=== PATIENT | female | born 1940 | race Caucasian/White ===

== ENCOUNTER 2016-12-29 09:05 | Day surgery (SDC) | payer MEDICARE, BC ==
[~2016-12-29 09:05] MED LIST: Sodium Chloride 0.9% 1,000 ML IV SCH
[2016-12-29] MEDS ORDERED: Propofol 200 MG/20 ML SDV IV ONE (09:06)
[2016-12-29] MEDS ORDERED: Propofol 200 MG/20 ML SDV ONE ×2 (09:19→10:40)
[2016-12-29] MEDS ORDERED: Lactated Ringers 1,000 ML IV SCH (10:00)
[2016-12-29] MEDS ORDERED: Sodium Chloride 0.9% 5 ML Syringe FLUSH PRN (10:00)
--- NOTE | 2016-12-29 12:03 | PCM.OPNOTE ---
- General Post-Op/Procedure Note Date of Surgery/Procedure: 12/29/16 Operative Procedure(s): Colonoscopy Findings: Multiple large diverticula noted in the sigmoid colon and the descending colon. No evidence of polyps, AV malformation, angiodysplasia, obstruction or or malignancy. Pre Op Diagnosis: Alteration of bowel habits. Anesthesia Technique: MAC Primary Surgeon: Aydin Jimenez Complications: None Condition: Good Free Text/Narrative:: INFORMED CONSENT: Patient is here today for elective colonoscopy. All aspects of this procedure have been discussed with the patient. All possible complications also, including possibility of perforation, infection, pain, bleeding and unknown complications. In the event of perforation patient may need to have abdominal exploration, colon resection, colostomy and even was discussed. Anesthetic complications were handled by anesthesia department. The patient understands fully well. Patient did not have any further questions for me at the end of my interview. The patient wishes for me to proceed. PREOPERATIVE DIAGNOSIS/INDICATIONS: [alteration of bowel habits, chronic diarrhea.] POSTOPERATIVE DIAGNOSIS: [Multiple diverticula especially of the sigmoid and descending colon. Some of the diverticula were large] INSTRUMENT USED: Olympus videocolonoscope. ASA CLASSIFICATION: [2] ANESTHESIA: Continuous EKG, oximetry and intermittent blood pressure and respiratory monitoring were performed throughout the procedure. IV Versed and Fentanyl were administered. PROCEDURE PERFORMED: Colonoscopy POSITIONS OF PATIENT: Left lateral. RECTUM: Normal. SIGMOID COLON: multiple lytic lyse some of them a large and noted.. DESCENDING COLON: Normal. SPLENIC FLEXURE: Normal. TRANSVERSE COLON: Normal. HEPATIC FLEXURE: Normal. ASCENDING COLON: Normal. CECUM: Normal. ILEOCECAL VALVE: Normal. BIOPSY: None. TOLERANCE: Excellent. COMPLICATIONS: None.
[2016-12-29 13:04] VITALS: BP 130/78
== END 2016-12-29 13:10 | disposition home or self-care (01) ==
LOC: KA.SDS 09:05
PROVIDERS: ATTEND Family Medicine
DX: K57.30 Diverticulosis of large intestine without perforation or abscess without bleeding (principal); E11.9 Type 2 diabetes mellitus without complications; I10 Essential (primary) hypertension; G47.30 Sleep apnea, unspecified; E78.5 Hyperlipidemia, unspecified; E03.4 Atrophy of thyroid (acquired); Z88.8 Allergy status to other drugs, medicaments and biological substances; Z79.899 Other long term (current) drug therapy
CPT/HCPCS: 00810; 45378; 82962; J7030; J2704

== ENCOUNTER 2020-07-27 19:56 | Inpatient (IN) | payer MEDICARE, BC ==
[2020-07-27] MEDS ORDERED: Sodium Chloride 0.9% 1,000 ML IV ONE ×2 (20:08→22:40)
[2020-07-27] MEDS ORDERED: Ondansetron 4 MG/2 ML SDV IVPUSH ONE (20:09)
[2020-07-27] MEDS ORDERED: Acetaminophen 500 MG Tab PO ONE (20:40)
[2020-07-27] MEDS ORDERED: Acetaminophen 500 MG Tab ONE (20:41)
[2020-07-27 21:34] LABS: ANION GAP 20.7 mmol/L (5-15); CHLORIDE,CL 95 mmol/L (98-107); SODIUM,NA 131 mmol/L (136-145)
[2020-07-27] MEDS ORDERED: cefTRIAXone 2 GM Vial IVPUSH ONE (22:21)
[2020-07-27] MEDS ORDERED: Sodium Chloride 0.9% 1,000 ML ONE (22:28)
[2020-07-27] MEDS ORDERED: Heparin Sodium/D5W 250 ML IV SCH (22:45)
[2020-07-27] MEDS ORDERED: Acetaminophen 325 MG Tab PO PRN (23:05)
--- NOTE | 2020-07-27 23:38 | EDM.PDOC ---
ED HPI GENERAL MEDICAL PROBLEM - General Chief Complaint: Gastrointestinal Problem Stated Complaint: NAUSEA, DIARRHEA Time Seen by Provider: 07/27/20 20:00 Source of Information: Reports: Patient, Family () History Limitations: Reports: No Limitations - History of Present Illness INITIAL COMMENTS - FREE TEXT/NARRATIVE: 79-year-old female presents to the emergency room with complaints of nausea vomiting and diarrhea that began on 07/26/2020. She denies any significant fevers but has felt chilled. She denies any shortness of breath or chest pain. She has not had much for appetite and has not been drinking fluids. Her states that she got dehydrated the last time that she had the similar symptoms. She denies any upper respiratory complaints. No cough. No headaches. Denies significant abdominal pain. Denies dysuria. Onset Date: 07/26/20 Duration: Hour(s):, Getting Worse Location: Reports: Generalized Quality: Reports: Ache Severity: Moderate Improves with: Reports: Rest Worsens with: Reports: None Associated Symptoms: Reports: Fever/Chills, Nausea/Vomiting, Weakness. Denies: Confusion, Chest Pain, Headaches, Shortness of Breath - Related Data Allergies Allergy/AdvReac Type Severity Reaction Status Date / Time rosuvastatin [From Crestor] Allergy Itching Verified 07/27/20 21:39 Cnlejar-Rby-Atk Reductase Allergy Other Verified 07/27/20 21:39 Inhibitor Home Meds: Home Meds Amitriptyline [Elavil] 50 mg PO BEDTIME 08/22/13 [History] Latanoprost [Xalatan 0.005% Ophth Soln] 2.5 ml EYEBOTH BEDTIME 07/22/15 [History] Levothyroxine 25 mcg PO ACBREAKFAST 07/22/15 [History] hydroCHLOROthiazide [Hydrochlorothiazide] 12.5 mg PO DAILY 07/22/15 [History] Losartan [Cozaar] 50 mg PO DAILY 12/24/16 [History] diphenhydrAMINE [Benadryl] 25 mg PO BEDTIME PRN 12/24/16 [History] Past Medical History HEENT History: Reports: Cataract, Glaucoma, Hard of Hearing, Impaired Vision Cardiovascular History: Reports: High Cholesterol, Hypertension Respiratory History: Reports: Sleep Apnea Gastrointestinal History: Reports: Chronic Diarrhea, GERD [employer] History: Reports: Fibroids, Musculoskeletal History: Reports: Neck Pain, Chronic Neurological History: Reports: Migraines Psychiatric History: Reports: None Endocrine/Metabolic History: Reports: Hypothyroidism, Obesity/BMI 30+ - Infectious Disease History Infectious Disease History: Reports: Chicken Pox, Herpes, Influenza, Pertussis (Whooping Cough), Shingles - Past Surgical History HEENT Surgical History: Reports: Cataract Surgery Cardiovascular Surgical History: Reports: None Respiratory Surgical History: Reports: None GI Surgical History: Reports: Appendectomy, Colonoscopy, EGD Female Surgical History: Reports: Hysterectomy, Salpingo-Oophorectomy Endocrine Surgical History: Reports: None Neurological Surgical History: Reports: None Social & Family History - Family History Family Medical History: No Pertinent Family History ED ROS GENERAL - Review of Systems Review Of Systems: See Below Constitutional: Reports: Chills HEENT: Reports: No Symptoms Respiratory: Reports: No Symptoms Cardiovascular: Reports: No Symptoms Endocrine: Reports: No Symptoms GI/Abdominal: Reports: Anorexia, Diarrhea, Nausea, Vomiting : Denies: Dysuria, Flank Pain Musculoskeletal: Reports: No Symptoms Skin: Denies: Cyanosis, Diaphoresis, Pruritis, Rash Neurological: Reports: No Symptoms ED EXAM, GI/ABD - Physical Exam Exam: See Below Exam Limited By: No Limitations General Appearance: Alert, WD/WN, No Apparent Distress Eyes: Bilateral: Normal Appearance, EOMI Ears: Hearing Grossly Normal Nose: Normal Inspection, Normal Mucosa, No Blood Throat/Mouth: Normal Inspection, Normal Oropharynx, Normal Voice, No Airway Compromise Head: Atraumatic, Normocephalic Neck: Normal Inspection, Supple, Non-Tender, Full Range of Motion Respiratory/Chest: No Respiratory Distress, Lungs Clear, Normal Breath Sounds, No Accessory Muscle Use Cardiovascular: Regular Rate, Rhythm GI/Abdominal Exam: Normal Bowel Sounds, Soft, Non-Tender, No Organomegaly, No Distention Back Exam: Normal Inspection. No: CVA Tenderness (L), CVA Tenderness (R) Extremities: Normal Inspection, Normal Range of Motion, Non-Tender, No Pedal Edema, Normal Capillary Refill Neurological: Alert, Oriented, CN II-XII Intact, No Motor/Sensory Deficits Psychiatric: Normal Affect, Normal Mood Skin Exam: Warm, Dry, Intact, Normal Color, No Rash Lymphatic: No Adenopathy Course - Vital Signs Last Recorded V/S: Last Vital Signs Temp 101.4 F H 07/27/20 21:10 Pulse 108 H 07/27/20 19:56 Resp 18 07/27/20 19:56 BP 147/85 H 07/27/20 19:56 Pulse Ox 93 L 07/27/20 19:56 - Orders/Labs/Meds Orders: Active Orders 24 hr Category Date Time Status Chest 2V [CR] Stat Exams 07/27/20 21:43 Ordered CULTURE BLOOD [BC] Stat Lab 07/27/20 22:55 Received CULTURE BLOOD [BC] Stat Lab 07/27/20 23:23 Received CULTURE URINE [RM] Stat Lab 07/27/20 22:45 Received Sodium Chloride 0.9% [Normal Saline] 1,000 ml Med 07/27/20 22:40 Active IV ASDIRECTED Blood Culture x2 Reflex Set [OM.PC] Stat Oth 07/27/20 22:31 Ordered Medication Orders Acetaminophen (Acetaminophen 325 Mg Tab) 650 mg PO Q4H PRN PRN Reason: analgesia/fever Sodium Chloride (Normal Saline) 1,000 mls @ 150 mls/hr IV ASDIRECTED ONE Stop: 07/28/20 05:19 Last Admin: 07/27/20 22:40 Dose: 150 mls/hr Documented by: MALEKAT Vancomycin HCl 1.5 gm/ Sodium (Chloride) 250 mls @ 167 mls/hr IV ONETIME ONE Stop: 07/28/20 01:03 Levothyroxine Sodium (Levothyroxine 25 Mcg Tab) 25 mcg PO ACBREAKFAST DADIE Ondansetron HCl (Ondansetron 4 Mg/2 Ml Sdv) 4 mg IVPUSH Q6H PRN PRN Reason: Nausea/Vomiting Labs: Laboratory Tests 07/27/20 07/27/20 07/27/20 Range/Units 20:50 20:50 20:50 WBC 21.03 H (5.00-10.00) 10^3/uL RBC 4.27 (3.80-5.50) 10^6/uL Hgb 11.3 L (12.0-16.0) g/dL Hct 33.5 L (37.0-47.0) % MCV 78.5 L D (82.0-92.0) fL MCH 26.5 L (27.0-31.0) pg MCHC 33.7 (32.0-36.0) g/dL RDW 15.0 H (11.5-14.5) % Plt Count 191 (150-400) 10^3/uL MPV 9.2 (7.4-10.4) fL Immature Gran % (Auto) 1.9 (0.0-5.0) % Neut % (Auto) 87.2 H (50.0-70.0) % Lymph % (Auto) 3.6 L (20.0-40.0) % Bartholomew % (Auto) 7.3 (2.0-8.0) % Eos % (Auto) 0.0 L (1.0-3.0) % Baso % (Auto) 0.0 (0.0-1.0) % Neut # (Auto) 18.33 H (2.50-7.00) 10^3/uL Lymph # (Auto) 0.75 L (1.00-4.00) 10^3/uL Bartholomew # (Auto) 1.53 H (0.10-0.80) 10^3/uL Eos # (Auto) 0.00 L (0.10-0.30) 10^3/uL Baso # (Auto) 0.01 (0.00-0.10) 10^3/uL Immature Gran # (Auto) 0.41 (0.00-0.50) 10^3/uL Sodium 131 L (136-145) mmol/L Potassium 3.9 (3.5-5.1) mmol/L Chloride 95 L (98-107) mmol/L Carbon Dioxide 19.2 L (21.0-32.0) mmol/L Anion Gap 20.7 H (5-15) mmol/L BUN 16 (7-18) mg/dL Creatinine 0.85 (0.51-1.17) mg/dL Est Cr Clr Drug Dosing TNP Estimated GFR (MDRD) > 60 mL/min Glucose 169 H (70-140) mg/dL Lactic Acid (0.4-2.0) mmol/L Calcium 8.9 (8.7-10.3) mg/dL Total Bilirubin 0.7 0.7 (0.2-1.0) mg/dL Direct Bilirubin 0.3 H (0.0-0.2) mg/dL Indirect Bilirubin 0.4 mg/dL AST 39 H 40 H (15-37) U/L ALT 48 48 (14-63) U/L Alkaline Phosphatase 87 85 (46-116) U/L Total Protein 7.0 7.0 (6.4-8.2) g/dL Albumin 3.19 L 3.18 L (3.40-5.00) g/dL Globulin 3.82 Albumin/Globulin Ratio 0.83 Specimen Type Urine Color (YELLOW) Urine Appearance (CLEAR) Urine pH (5.0-9.0) Ur Specific [place] (1.005-1.030) Urine Protein (NEGATIVE) mg/dL Urine Glucose (UA) (NEGATIVE) mg/dL Urine Ketones (NEGATIVE) mg/dL Urine Occult Blood (NEGATIVE) Urine Nitrite (NEGATIVE) Urine Bilirubin (NEGATIVE) Urine Urobilinogen (0.2-1.0) E.U./dL Ur Leukocyte Esterase (NEGATIVE) Urine RBC (0-5) /HPF Urine WBC (0-5) /HPF Ur Epithelial Cells /LPF Urine Bacteria (NONE TO FEW) /HPF Urine Mucus (NEGATIVE) /LPF SARS CoV-2 RNA Rapid VERA (NEGATIVE) 07/27/20 07/27/20 07/27/20 Range/Units 21:50 22:50 22:55 WBC (5.00-10.00) 10^3/uL RBC (3.80-5.50) 10^6/uL Hgb (12.0-16.0) g/dL Hct (37.0-47.0) % MCV (82.0-92.0) fL MCH (27.0-31.0) pg MCHC (32.0-36.0) g/dL RDW (11.5-14.5) % Plt Count (150-400) 10^3/uL MPV (7.4-10.4) fL Immature Gran % (Auto) (0.0-5.0) % Neut % (Auto) (50.0-70.0) % Lymph % (Auto) (20.0-40.0) % Bartholomew % (Auto) (2.0-8.0) % Eos % (Auto) (1.0-3.0) % Baso % (Auto) (0.0-1.0) % Neut # (Auto) (2.50-7.00) 10^3/uL Lymph # (Auto) (1.00-4.00) 10^3/uL Bartholomew # (Auto) (0.10-0.80) 10^3/uL Eos # (Auto) (0.10-0.30) 10^3/uL Baso # (Auto) (0.00-0.10) 10^3/uL Immature Gran # (Auto) (0.00-0.50) 10^3/uL Sodium (136-145) mmol/L Potassium (3.5-5.1) mmol/L Chloride (98-107) mmol/L Carbon Dioxide (21.0-32.0) mmol/L Anion Gap (5-15) mmol/L BUN (7-18) mg/dL Creatinine (0.51-1.17) mg/dL Est Cr Clr Drug Dosing Estimated GFR (MDRD) mL/min Glucose (70-140) mg/dL Lactic Acid 4.9 H (0.4-2.0) mmol/L Calcium (8.7-10.3) mg/dL Total Bilirubin (0.2-1.0) mg/dL Direct Bilirubin (0.0-0.2) mg/dL Indirect Bilirubin mg/dL AST (15-37) U/L ALT (14-63) U/L Alkaline Phosphatase (46-116) U/L Total Protein (6.4-8.2) g/dL Albumin (3.40-5.00) g/dL Globulin Albumin/Globulin Ratio Specimen Type Urincath Urine Color Yellow (YELLOW) Urine Appearance Slightly cloudy H (CLEAR) Urine pH 6.0 (5.0-9.0) Ur Specific [place] 1.020 (1.005-1.030) Urine Protein 100 H (NEGATIVE) mg/dL Urine Glucose (UA) Negative (NEGATIVE) mg/dL Urine Ketones 15 H (NEGATIVE) mg/dL Urine Occult Blood Moderate H (NEGATIVE) Urine Nitrite Negative (NEGATIVE) Urine Bilirubin Negative (NEGATIVE) Urine Urobilinogen 0.2 (0.2-1.0) E.U./dL Ur Leukocyte Esterase Large H (NEGATIVE) Urine RBC 20-30 H (0-5) /HPF Urine WBC 75-100 H (0-5) /HPF Ur Epithelial Cells Few /LPF Urine Bacteria Moderate H (NONE TO FEW) /HPF Urine Mucus Few H (NEGATIVE) /LPF SARS CoV-2 RNA Rapid VERA Negative (NEGATIVE) Meds: Medications Generic Name Dose Route Start Last Admin Trade Name Suki PRN Reason Stop Dose Admin Acetaminophen 650 mg 07/27/20 23:05 Acetaminophen 325 Mg Tab PO Q4H PRN analgesia/fever Sodium Chloride 1,000 mls @ 150 mls/hr 07/27/20 22:40 07/27/20 22:40 Normal Saline IV 07/28/20 05:19 150 mls/hr ASDIRECTED ONE Administration Vancomycin HCl 1.5 gm/ Sodium 250 mls @ 167 mls/hr 07/27/20 23:34 Chloride IV 07/28/20 01:03 ONETIME ONE Levothyroxine Sodium 25 mcg 07/28/20 07:30 Levothyroxine 25 Mcg Tab PO ACBREAKFAST ADDIE Ondansetron HCl 4 mg 07/28/20 00:11 Ondansetron 4 Mg/2 Ml Sdv IVPUSH Q6H PRN Nausea/Vomiting Discontinued Medications Generic Name Dose Route Start Last Admin Trade Name Suki PRN Reason Stop Dose Admin Acetaminophen Confirm 07/27/20 20:41 07/27/20 22:06 Acetaminophen 500 Mg Tab Administered 07/27/20 20:42 Not Given Dose 1,000 mg .ROUTE .STK-MED ONE Acetaminophen 1,000 mg 07/27/20 20:40 07/27/20 20:40 Acetaminophen 500 Mg Tab PO 07/27/20 20:41 1,000 mg ONETIME ONE Administration Ceftriaxone Sodium 2 gm 07/27/20 22:21 07/27/20 23:09 Ceftriaxone 2 Gm Vial IVPUSH 07/27/20 22:22 2 gm ONETIME ONE Administration Sodium Chloride 1,000 mls @ 1,000 mls/hr 07/27/20 20:08 07/27/20 20:21 Normal Saline IV 07/27/20 21:07 1,000 mls/hr .BOLUS ONE Administration Sodium Chloride Confirm 07/27/20 22:28 07/27/20 22:44 Normal Saline Administered 07/27/20 22:29 Not Given Dose 1,000 mls @ as directed .ROUTE .STK-MED ONE Ondansetron HCl 4 mg 07/27/20 20:09 07/27/20 20:23 Ondansetron 4 Mg/2 Ml Sdv IVPUSH 07/27/20 20:10 4 mg ONETIME ONE Administration - Radiology Interpretation Free Text/Narrative:: 2 view chest x-ray Findings: Mediastinum: No cardiac silhouette enlargement. Lungs: No infiltrate or mass. Prominent reticular markings bilaterally consistent with chronic fibrotic change. Pleura: No pneumothorax or significant effusion. Bones: No acute pathology. Impression: No acute pathology. Prominent reticular markings bilaterally consistent with chronic fibrotic change. - Re-Assessments/Exams Free Text/Narrative Re-Assessment/Exam: 07/27/20 23:48 Patient was given 1 L IV fluids bolus and 4 mg of Zofran. Was given 1 g of Tylenol p.o. patient reports she felt better. Nausea improved. Patient was unable to void and therefore with straight cath was dark and cloudy urine. Urine culture showed positive leukocytes with white blood cells and many bacteria. White blood cell count was elevated at 21,000 with a elevated neutrophils. Lactic acid and blood cultures were ordered to rule out urosepsis Departure - Departure Time of Disposition: 00:20 Disposition: Admitted As Inpatient 67 Condition: Fair Clinical Impression: Sepsis due to urinary tract infection, Dehydration Urinary tract infection Qualifiers: Urinary tract infection type: acute cystitis Hematuria presence: with hematuria Qualified Code(s): N30.01 - Acute cystitis with hematuria - Discharge Information Sepsis Event Note (ED) - Evaluation Sepsis Screening Result: Possible Sepsis Risk - Focused Exam Vital Signs: Vital Signs Temp Temp Pulse Resp BP Pulse Ox 07/27/20 21:10 101.4 F H 07/27/20 20:40 101.8 F H 07/27/20 19:56 98.1 F 108 H 18 147/85 H 93 L - My Orders Last 24 Hours: My Active Orders 07/27/20 21:43 Chest 2V [CR] Stat 07/27/20 22:31 Blood Culture x2 Reflex Set [OM.PC] Stat 07/27/20 22:40 Sodium Chloride 0.9% [Normal Saline] 1,000 ml IV ASDIRECTED 07/27/20 22:45 CULTURE URINE [RM] Stat 07/27/20 22:55 CULTURE BLOOD [BC] Stat 07/27/20 23:23 CULTURE BLOOD [BC] Stat - Assessment/Plan Last 24 Hours: My Active Orders 07/27/20 21:43 Chest 2V [CR] Stat 07/27/20 22:31 Blood Culture x2 Reflex Set [OM.PC] Stat 07/27/20 22:40 Sodium Chloride 0.9% [Normal Saline] 1,000 ml IV ASDIRECTED 07/27/20 22:45 CULTURE URINE [RM] Stat 07/27/20 22:55 CULTURE BLOOD [BC] Stat 07/27/20 23:23 CULTURE BLOOD [BC] Stat Assessment:: 1. Urinary tract infection 2. Sepsis secondary to urinary tract infection 3. Dehydration Plan: 1. Patient was given 1 L bolus fluid resuscitation of normal saline 2. Tylenol 1 g for fever. Temperature improved to 100 3. Zofran 4 mg IV for nausea, improved 4. Rocephin 2 g IV for urinary tract infection 5. Vancomycin 1.5 g IV for urosepsis. Blood cultures are pending. 6. Patient will be admitted for urinary tract infection, dehydration, urosepsis. [facility] has accepted inpatient care.
[2020-07-28] MEDS: Ondansetron 4 MG/2 ML SDV IVPUSH PRN ×2 (00:40→07:20)
[2020-07-28] MEDS ORDERED: Nitroglycerin 0.4 MG Tab.SL SL PRN (02:07)
[2020-07-28] MEDS ORDERED: EPINEPHrine 1:10,000 1 MG/10 ML Syringe IVPUSH PRN (02:07)
[2020-07-28] MEDS ORDERED: Lidocaine 2% 100 MG/5 ML Syringe IVPUSH PRN (02:07)
[2020-07-28] MEDS ORDERED: Atropine 0.1 MG/ML 10 ML Syringe IVPUSH PRN (02:07)
[2020-07-28] MEDS ORDERED: Sodium Chloride 0.9% 1,000 ML IV ONE (03:50)
[2020-07-28] MEDS ORDERED: Levothyroxine 25 MCG Tab PO SCH (07:30)
[2020-07-28] MEDS ORDERED: Sodium Chloride 0.9% 1,000 ML ONE (08:18)
[2020-07-28 08:37] LABS: ANION GAP 19.3 mmol/L (5-15)
--- NOTE | 2020-07-28 09:15 | CR ---
[id number] RAD/RAD Chest PA And Lateral EXAM: RAD Chest PA And Lateral INDICATION: ELEVATED WBC CHILLS COMPARISON: None. DISCUSSION: Cardiomediastinal silhouette is normal in size and contour. No infiltrate, effusion, pneumothorax, or edema. Pulmonary hyperinflation. Bibasilar subsegmental atelectasis and/or scarring. IMPRESSION: No acute cardiopulmonary abnormality. Yoav Alcantar DO 07/28/20 0914 Thank you for allowing us to participate in the care of your patient.
[2020-07-28 10:15] VITALS: BP 111/66; PULSE 98
--- NOTE | 2020-07-28 10:56 | PCM.PN ---
- Patient Data Vitals - Most Recent: Last Vital Signs Temp 97 F 07/28/20 10:14 Pulse 98 07/28/20 10:14 Resp 24 H 07/28/20 10:14 BP 111/66 07/28/20 10:14 Pulse Ox 93 L 07/28/20 10:14 Weight - Most Recent: 192 lb 3 oz I&O - Last 24 Hours: Intake & Output 07/27/20 07/28/20 07/28/20 22:59 06:59 14:59 Intake Total 1861 Output Total 350 Balance 1511 Lab Results Last 24 Hours: Laboratory Results - last 24 hr 07/27/20 07/27/20 07/27/20 Range/Units 20:50 20:50 20:50 WBC 21.03 H (5.00-10.00) 10^3/uL RBC 4.27 (3.80-5.50) 10^6/uL Hgb 11.3 L (12.0-16.0) g/dL Hct 33.5 L (37.0-47.0) % MCV 78.5 L D (82.0-92.0) fL MCH 26.5 L (27.0-31.0) pg MCHC 33.7 (32.0-36.0) g/dL RDW 15.0 H (11.5-14.5) % Plt Count 191 (150-400) 10^3/uL MPV 9.2 (7.4-10.4) fL Immature Gran % (Auto) 1.9 (0.0-5.0) % Neut % (Auto) 87.2 H (50.0-70.0) % Lymph % (Auto) 3.6 L (20.0-40.0) % [place] % (Auto) 7.3 (2.0-8.0) % Eos % (Auto) 0.0 L (1.0-3.0) % Baso % (Auto) 0.0 (0.0-1.0) % Neut # (Auto) 18.33 H (2.50-7.00) 10^3/uL Lymph # (Auto) 0.75 L (1.00-4.00) 10^3/uL [place] # (Auto) 1.53 H (0.10-0.80) 10^3/uL Eos # (Auto) 0.00 L (0.10-0.30) 10^3/uL Baso # (Auto) 0.01 (0.00-0.10) 10^3/uL Immature Gran # (Auto) 0.41 (0.00-0.50) 10^3/uL Sodium 131 L (136-145) mmol/L Potassium 3.9 (3.5-5.1) mmol/L Chloride 95 L (98-107) mmol/L Carbon Dioxide 19.2 L (21.0-32.0) mmol/L Anion Gap 20.7 H (5-15) mmol/L BUN 16 (7-18) mg/dL Creatinine 0.85 (0.51-1.17) mg/dL Est Cr Clr Drug Dosing TNP Estimated GFR (MDRD) > 60 mL/min Glucose 169 H (70-140) mg/dL Lactic Acid (0.4-2.0) mmol/L Calcium 8.9 (8.7-10.3) mg/dL Total Bilirubin 0.7 0.7 (0.2-1.0) mg/dL Direct Bilirubin 0.3 H (0.0-0.2) mg/dL Indirect Bilirubin 0.4 mg/dL AST 39 H 40 H (15-37) U/L ALT 48 48 (14-63) U/L Alkaline Phosphatase 87 85 (46-116) U/L C-Reactive Protein (0.0-0.9) mg/dL B-Natriuretic Peptide (0-100) pg/mL Total Protein 7.0 7.0 (6.4-8.2) g/dL Albumin 3.19 L 3.18 L (3.40-5.00) g/dL Globulin 3.82 Albumin/Globulin Ratio 0.83 Specimen Type Urine Color (YELLOW) Urine Appearance (CLEAR) Urine pH (5.0-9.0) Ur Specific [place] (1.005-1.030) Urine Protein (NEGATIVE) mg/dL Urine Glucose (UA) (NEGATIVE) mg/dL Urine Ketones (NEGATIVE) mg/dL Urine Occult Blood (NEGATIVE) Urine Nitrite (NEGATIVE) Urine Bilirubin (NEGATIVE) Urine Urobilinogen (0.2-1.0) E.U./dL Ur Leukocyte Esterase (NEGATIVE) Urine RBC (0-5) /HPF Urine WBC (0-5) /HPF Ur Epithelial Cells /LPF Urine Bacteria (NONE TO FEW) /HPF Urine Mucus (NEGATIVE) /LPF SARS CoV-2 RNA Rapid VERA (NEGATIVE) 07/27/20 07/27/20 07/27/20 Range/Units 21:50 22:50 22:55 WBC (5.00-10.00) 10^3/uL RBC (3.80-5.50) 10^6/uL Hgb (12.0-16.0) g/dL Hct (37.0-47.0) % MCV (82.0-92.0) fL MCH (27.0-31.0) pg MCHC (32.0-36.0) g/dL RDW (11.5-14.5) % Plt Count (150-400) 10^3/uL MPV (7.4-10.4) fL Immature Gran % (Auto) (0.0-5.0) % Neut % (Auto) (50.0-70.0) % Lymph % (Auto) (20.0-40.0) % [place] % (Auto) (2.0-8.0) % Eos % (Auto) (1.0-3.0) % Baso % (Auto) (0.0-1.0) % Neut # (Auto) (2.50-7.00) 10^3/uL Lymph # (Auto) (1.00-4.00) 10^3/uL [place] # (Auto) (0.10-0.80) 10^3/uL Eos # (Auto) (0.10-0.30) 10^3/uL Baso # (Auto) (0.00-0.10) 10^3/uL Immature Gran # (Auto) (0.00-0.50) 10^3/uL Sodium (136-145) mmol/L Potassium (3.5-5.1) mmol/L Chloride (98-107) mmol/L Carbon Dioxide (21.0-32.0) mmol/L Anion Gap (5-15) mmol/L BUN (7-18) mg/dL Creatinine (0.51-1.17) mg/dL Est Cr Clr Drug Dosing Estimated GFR (MDRD) mL/min Glucose (70-140) mg/dL Lactic Acid 4.9 H (0.4-2.0) mmol/L Calcium (8.7-10.3) mg/dL Total Bilirubin (0.2-1.0) mg/dL Direct Bilirubin (0.0-0.2) mg/dL Indirect Bilirubin mg/dL AST (15-37) U/L ALT (14-63) U/L Alkaline Phosphatase (46-116) U/L C-Reactive Protein (0.0-0.9) mg/dL B-Natriuretic Peptide (0-100) pg/mL Total Protein (6.4-8.2) g/dL Albumin (3.40-5.00) g/dL Globulin Albumin/Globulin Ratio Specimen Type Urincath Urine Color Yellow (YELLOW) Urine Appearance Slightly cloudy H (CLEAR) Urine pH 6.0 (5.0-9.0) Ur Specific [place] 1.020 (1.005-1.030) Urine Protein 100 H (NEGATIVE) mg/dL Urine Glucose (UA) Negative (NEGATIVE) mg/dL Urine Ketones 15 H (NEGATIVE) mg/dL Urine Occult Blood Moderate H (NEGATIVE) Urine Nitrite Negative (NEGATIVE) Urine Bilirubin Negative (NEGATIVE) Urine Urobilinogen 0.2 (0.2-1.0) E.U./dL Ur Leukocyte Esterase Large H (NEGATIVE) Urine RBC 20-30 H (0-5) /HPF Urine WBC 75-100 H (0-5) /HPF Ur Epithelial Cells Few /LPF Urine Bacteria Moderate H (NONE TO FEW) /HPF Urine Mucus Few H (NEGATIVE) /LPF SARS CoV-2 RNA Rapid VERA Negative (NEGATIVE) 07/28/20 07/28/20 07/28/20 Range/Units 03:03 07:10 07:10 WBC 9.69 D (5.00-10.00) 10^3/uL RBC 3.86 (3.80-5.50) 10^6/uL Hgb 10.2 L (12.0-16.0) g/dL Hct 31.0 L (37.0-47.0) % MCV 80.3 L (82.0-92.0) fL MCH 26.4 L (27.0-31.0) pg MCHC 32.9 (32.0-36.0) g/dL RDW 15.3 H (11.5-14.5) % Plt Count 152 (150-400) 10^3/uL MPV 9.4 (7.4-10.4) fL Immature Gran % (Auto) 5.5 H (0.0-5.0) % Neut % (Auto) 86.7 H (50.0-70.0) % Lymph % (Auto) 5.8 L (20.0-40.0) % [place] % (Auto) 1.8 L (2.0-8.0) % Eos % (Auto) 0.1 L (1.0-3.0) % Baso % (Auto) 0.1 (0.0-1.0) % Neut # (Auto) 8.41 H (2.50-7.00) 10^3/uL Lymph # (Auto) 0.56 L (1.00-4.00) 10^3/uL [place] # (Auto) 0.17 (0.10-0.80) 10^3/uL Eos # (Auto) 0.01 L (0.10-0.30) 10^3/uL Baso # (Auto) 0.01 (0.00-0.10) 10^3/uL Immature Gran # (Auto) 0.53 H (0.00-0.50) 10^3/uL Sodium 134 L (136-145) mmol/L Potassium 3.8 (3.5-5.1) mmol/L Chloride 99 (98-107) mmol/L Carbon Dioxide 19.5 L (21.0-32.0) mmol/L Anion Gap 19.3 H (5-15) mmol/L BUN 18 (7-18) mg/dL Creatinine 0.96 (0.51-1.17) mg/dL Est Cr Clr Drug Dosing 41.71 Estimated GFR (MDRD) 56 mL/min Glucose 125 (70-140) mg/dL Lactic Acid 4.3 H (0.4-2.0) mmol/L Calcium 8.3 L (8.7-10.3) mg/dL Total Bilirubin 0.4 (0.2-1.0) mg/dL Direct Bilirubin (0.0-0.2) mg/dL Indirect Bilirubin mg/dL AST 31 (15-37) U/L ALT 40 (14-63) U/L Alkaline Phosphatase 98 (46-116) U/L C-Reactive Protein 28.3 H (0.0-0.9) mg/dL B-Natriuretic Peptide (0-100) pg/mL Total Protein 6.3 L (6.4-8.2) g/dL Albumin 2.73 L (3.40-5.00) g/dL Globulin Albumin/Globulin Ratio Specimen Type Urine Color (YELLOW) Urine Appearance (CLEAR) Urine pH (5.0-9.0) Ur Specific [place] (1.005-1.030) Urine Protein (NEGATIVE) mg/dL Urine Glucose (UA) (NEGATIVE) mg/dL Urine Ketones (NEGATIVE) mg/dL Urine Occult Blood (NEGATIVE) Urine Nitrite (NEGATIVE) Urine Bilirubin (NEGATIVE) Urine Urobilinogen (0.2-1.0) E.U./dL Ur Leukocyte Esterase (NEGATIVE) Urine RBC (0-5) /HPF Urine WBC (0-5) /HPF Ur Epithelial Cells /LPF Urine Bacteria (NONE TO FEW) /HPF Urine Mucus (NEGATIVE) /LPF SARS CoV-2 RNA Rapid VERA (NEGATIVE) 07/28/20 07/28/20 Range/Units 07:10 07:10 WBC (5.00-10.00) 10^3/uL RBC (3.80-5.50) 10^6/uL Hgb (12.0-16.0) g/dL Hct (37.0-47.0) % MCV (82.0-92.0) fL MCH (27.0-31.0) pg MCHC (32.0-36.0) g/dL RDW (11.5-14.5) % Plt Count (150-400) 10^3/uL MPV (7.4-10.4) fL Immature Gran % (Auto) (0.0-5.0) % Neut % (Auto) (50.0-70.0) % Lymph % (Auto) (20.0-40.0) % [place] % (Auto) (2.0-8.0) % Eos % (Auto) (1.0-3.0) % Baso % (Auto) (0.0-1.0) % Neut # (Auto) (2.50-7.00) 10^3/uL Lymph # (Auto) (1.00-4.00) 10^3/uL [place] # (Auto) (0.10-0.80) 10^3/uL Eos # (Auto) (0.10-0.30) 10^3/uL Baso # (Auto) (0.00-0.10) 10^3/uL Immature Gran # (Auto) (0.00-0.50) 10^3/uL Sodium (136-145) mmol/L Potassium (3.5-5.1) mmol/L Chloride (98-107) mmol/L Carbon Dioxide (21.0-32.0) mmol/L Anion Gap (5-15) mmol/L BUN (7-18) mg/dL Creatinine (0.51-1.17) mg/dL Est Cr Clr Drug Dosing Estimated GFR (MDRD) mL/min Glucose (70-140) mg/dL Lactic Acid 4.7 H (0.4-2.0) mmol/L Calcium (8.7-10.3) mg/dL Total Bilirubin (0.2-1.0) mg/dL Direct Bilirubin (0.0-0.2) mg/dL Indirect Bilirubin mg/dL AST (15-37) U/L ALT (14-63) U/L Alkaline Phosphatase (46-116) U/L C-Reactive Protein (0.0-0.9) mg/dL B-Natriuretic Peptide 170 H (0-100) pg/mL Total Protein (6.4-8.2) g/dL Albumin (3.40-5.00) g/dL Globulin Albumin/Globulin Ratio Specimen Type Urine Color (YELLOW) Urine Appearance (CLEAR) Urine pH (5.0-9.0) Ur Specific [place] (1.005-1.030) Urine Protein (NEGATIVE) mg/dL Urine Glucose (UA) (NEGATIVE) mg/dL Urine Ketones (NEGATIVE) mg/dL Urine Occult Blood (NEGATIVE) Urine Nitrite (NEGATIVE) Urine Bilirubin (NEGATIVE) Urine Urobilinogen (0.2-1.0) E.U./dL Ur Leukocyte Esterase (NEGATIVE) Urine RBC (0-5) /HPF Urine WBC (0-5) /HPF Ur Epithelial Cells /LPF Urine Bacteria (NONE TO FEW) /HPF Urine Mucus (NEGATIVE) /LPF SARS CoV-2 RNA Rapid VERA (NEGATIVE) Gideon Results Last 24 Hours: Microbiology 07/27/20 22:55 Anaerobic Blood Culture - Final Blood - Venous 07/27/20 22:45 Urine Culture - Final Urine, Catheterized Med Orders - Current: Current Medications Acetaminophen (Acetaminophen 325 Mg Tab) 650 mg PO Q4H PRN PRN Reason: analgesia/fever Last Admin: 07/28/20 04:34 Dose: 650 mg Documented by: Atropine Sulfate (Atropine 0.1 Mg/Ml 10 Ml Syringe) 0 mg IVPUSH ASDIRECTED PRN PRN Reason: Heart. Epinephrine HCl (Epinephrine 1:10,000 1 Mg/10 Ml Syringe) 1 mg IVPUSH ASDIRECTED PRN PRN Reason: Heart. Levothyroxine Sodium (Levothyroxine 25 Mcg Tab) 25 mcg PO ACBREAKFAST ADDIE Last Admin: 07/28/20 07:16 Dose: 25 mcg Documented by: Lidocaine HCl (Lidocaine 2% 100 Mg/5 Ml Syringe) 0 mg IVPUSH ASDIRECTED PRN PRN Reason: Heart. Nitroglycerin (Nitroglycerin 0.4 Mg Tab.Sl) 0.4 mg SL ASDIRECTED PRN PRN Reason: Heart. Ondansetron HCl (Ondansetron 4 Mg/2 Ml Sdv) 4 mg IVPUSH Q6H PRN PRN Reason: Nausea/Vomiting Last Admin: 07/28/20 07:20 Dose: 4 mg Documented by: Discontinued Medications Acetaminophen (Acetaminophen 500 Mg Tab) Confirm Administered Dose 1,000 mg .ROUTE .STK-MED ONE Stop: 07/27/20 20:42 Last Admin: 07/27/20 22:06 Dose: Not Given Documented by: Acetaminophen (Acetaminophen 500 Mg Tab) 1,000 mg PO ONETIME ONE Stop: 07/27/20 20:41 Last Admin: 07/27/20 20:40 Dose: 1,000 mg Documented by: Ceftriaxone Sodium (Ceftriaxone 2 Gm Vial) 2 gm IVPUSH ONETIME ONE Stop: 07/27/20 22:22 Last Admin: 07/27/20 23:09 Dose: 2 gm Documented by: Sodium Chloride (Normal Saline) 1,000 mls @ 1,000 mls/hr IV .BOLUS ONE Stop: 07/27/20 21:07 Last Admin: 07/27/20 20:21 Dose: 1,000 mls/hr Documented by: Sodium Chloride (Normal Saline) Confirm Administered Dose 1,000 mls @ as directed .ROUTE .STK-MED ONE Stop: 07/27/20 22:29 Last Admin: 07/27/20 22:44 Dose: Not Given Documented by: Sodium Chloride (Normal Saline) 1,000 mls @ 150 mls/hr IV ASDIRECTED ONE Stop: 07/28/20 05:19 Last Infusion: 07/28/20 04:03 Dose: 999 mls/hr Documented by: Vancomycin HCl 1.5 gm/ Sodium (Chloride) 250 mls @ 167 mls/hr IV ONETIME ONE Stop: 07/28/20 01:03 Last Admin: 07/28/20 00:45 Dose: 167 mls/hr Documented by: Sodium Chloride (Normal Saline) 1,000 mls @ 999 mls/hr IV .BOLUS ONE Stop: 07/28/20 04:50 Last Infusion: 07/28/20 07:26 Dose: 250 mls/hr Documented by: Sodium Chloride (Normal Saline) Confirm Administered Dose 1,000 mls @ as directed .ROUTE .ST-MED ONE Stop: 07/28/20 08:19 Last Admin: 07/28/20 08:55 Dose: Not Given Documented by: Ondansetron HCl (Ondansetron 4 Mg/2 Ml Sdv) 4 mg IVPUSH ONETIME ONE Stop: 07/27/20 20:10 Last Admin: 07/27/20 20:23 Dose: 4 mg Documented by: - Patient Data Lab Results Last 24 hrs: Laboratory Results - last 24 hr 07/27/20 07/27/20 07/27/20 Range/Units 20:50 20:50 20:50 WBC 21.03 H (5.00-10.00) 10^3/uL RBC 4.27 (3.80-5.50) 10^6/uL Hgb 11.3 L (12.0-16.0) g/dL Hct 33.5 L (37.0-47.0) % MCV 78.5 L D (82.0-92.0) fL MCH 26.5 L (27.0-31.0) pg MCHC 33.7 (32.0-36.0) g/dL RDW 15.0 H (11.5-14.5) % Plt Count 191 (150-400) 10^3/uL MPV 9.2 (7.4-10.4) fL Immature Gran % (Auto) 1.9 (0.0-5.0) % Neut % (Auto) 87.2 H (50.0-70.0) % Lymph % (Auto) 3.6 L (20.0-40.0) % [place] % (Auto) 7.3 (2.0-8.0) % Eos % (Auto) 0.0 L (1.0-3.0) % Baso % (Auto) 0.0 (0.0-1.0) % Neut # (Auto) 18.33 H (2.50-7.00) 10^3/uL Lymph # (Auto) 0.75 L (1.00-4.00) 10^3/uL [place] # (Auto) 1.53 H (0.10-0.80) 10^3/uL Eos # (Auto) 0.00 L (0.10-0.30) 10^3/uL Baso # (Auto) 0.01 (0.00-0.10) 10^3/uL Immature Gran # (Auto) 0.41 (0.00-0.50) 10^3/uL Sodium 131 L (136-145) mmol/L Potassium 3.9 (3.5-5.1) mmol/L Chloride 95 L (98-107) mmol/L Carbon Dioxide 19.2 L (21.0-32.0) mmol/L Anion Gap 20.7 H (5-15) mmol/L BUN 16 (7-18) mg/dL Creatinine 0.85 (0.51-1.17) mg/dL Est Cr Clr Drug Dosing TNP Estimated GFR (MDRD) > 60 mL/min Glucose 169 H (70-140) mg/dL Lactic Acid (0.4-2.0) mmol/L Calcium 8.9 (8.7-10.3) mg/dL Total Bilirubin 0.7 0.7 (0.2-1.0) mg/dL Direct Bilirubin 0.3 H (0.0-0.2) mg/dL Indirect Bilirubin 0.4 mg/dL AST 39 H 40 H (15-37) U/L ALT 48 48 (14-63) U/L Alkaline Phosphatase 87 85 (46-116) U/L C-Reactive Protein (0.0-0.9) mg/dL B-Natriuretic Peptide (0-100) pg/mL Total Protein 7.0 7.0 (6.4-8.2) g/dL Albumin 3.19 L 3.18 L (3.40-5.00) g/dL Globulin 3.82 Albumin/Globulin Ratio 0.83 Specimen Type Urine Color (YELLOW) Urine Appearance (CLEAR) Urine pH (5.0-9.0) Ur Specific [place] (1.005-1.030) Urine Protein (NEGATIVE) mg/dL Urine Glucose (UA) (NEGATIVE) mg/dL Urine Ketones (NEGATIVE) mg/dL Urine Occult Blood (NEGATIVE) Urine Nitrite (NEGATIVE) Urine Bilirubin (NEGATIVE) Urine Urobilinogen (0.2-1.0) E.U./dL Ur Leukocyte Esterase (NEGATIVE) Urine RBC (0-5) /HPF Urine WBC (0-5) /HPF Ur Epithelial Cells /LPF Urine Bacteria (NONE TO FEW) /HPF Urine Mucus (NEGATIVE) /LPF SARS CoV-2 RNA Rapid VERA (NEGATIVE) 07/27/20 07/27/20 07/27/20 Range/Units 21:50 22:50 22:55 WBC (5.00-10.00) 10^3/uL RBC (3.80-5.50) 10^6/uL Hgb (12.0-16.0) g/dL Hct (37.0-47.0) % MCV (82.0-92.0) fL MCH (27.0-31.0) pg MCHC (32.0-36.0) g/dL RDW (11.5-14.5) % Plt Count (150-400) 10^3/uL MPV (7.4-10.4) fL Immature Gran % (Auto) (0.0-5.0) % Neut % (Auto) (50.0-70.0) % Lymph % (Auto) (20.0-40.0) % [place] % (Auto) (2.0-8.0) % Eos % (Auto) (1.0-3.0) % Baso % (Auto) (0.0-1.0) % Neut # (Auto) (2.50-7.00) 10^3/uL Lymph # (Auto) (1.00-4.00) 10^3/uL [place] # (Auto) (0.10-0.80) 10^3/uL Eos # (Auto) (0.10-0.30) 10^3/uL Baso # (Auto) (0.00-0.10) 10^3/uL Immature Gran # (Auto) (0.00-0.50) 10^3/uL Sodium (136-145) mmol/L Potassium (3.5-5.1) mmol/L Chloride (98-107) mmol/L Carbon Dioxide (21.0-32.0) mmol/L Anion Gap (5-15) mmol/L BUN (7-18) mg/dL Creatinine (0.51-1.17) mg/dL Est Cr Clr Drug Dosing Estimated GFR (MDRD) mL/min Glucose (70-140) mg/dL Lactic Acid 4.9 H (0.4-2.0) mmol/L Calcium (8.7-10.3) mg/dL Total Bilirubin (0.2-1.0) mg/dL Direct Bilirubin (0.0-0.2) mg/dL Indirect Bilirubin mg/dL AST (15-37) U/L ALT (14-63) U/L Alkaline Phosphatase (46-116) U/L C-Reactive Protein (0.0-0.9) mg/dL B-Natriuretic Peptide (0-100) pg/mL Total Protein (6.4-8.2) g/dL Albumin (3.40-5.00) g/dL Globulin Albumin/Globulin Ratio Specimen Type Urincath Urine Color Yellow (YELLOW) Urine Appearance Slightly cloudy H (CLEAR) Urine pH 6.0 (5.0-9.0) Ur Specific [place] 1.020 (1.005-1.030) Urine Protein 100 H (NEGATIVE) mg/dL Urine Glucose (UA) Negative (NEGATIVE) mg/dL Urine Ketones 15 H (NEGATIVE) mg/dL Urine Occult Blood Moderate H (NEGATIVE) Urine Nitrite Negative (NEGATIVE) Urine Bilirubin Negative (NEGATIVE) Urine Urobilinogen 0.2 (0.2-1.0) E.U./dL Ur Leukocyte Esterase Large H (NEGATIVE) Urine RBC 20-30 H (0-5) /HPF Urine WBC 75-100 H (0-5) /HPF Ur Epithelial Cells Few /LPF Urine Bacteria Moderate H (NONE TO FEW) /HPF Urine Mucus Few H (NEGATIVE) /LPF SARS CoV-2 RNA Rapid VERA Negative (NEGATIVE) 07/28/20 07/28/20 07/28/20 Range/Units 03:03 07:10 07:10 WBC 9.69 D (5.00-10.00) 10^3/uL RBC 3.86 (3.80-5.50) 10^6/uL Hgb 10.2 L (12.0-16.0) g/dL Hct 31.0 L (37.0-47.0) % MCV 80.3 L (82.0-92.0) fL MCH 26.4 L (27.0-31.0) pg MCHC 32.9 (32.0-36.0) g/dL RDW 15.3 H (11.5-14.5) % Plt Count 152 (150-400) 10^3/uL MPV 9.4 (7.4-10.4) fL Immature Gran % (Auto) 5.5 H (0.0-5.0) % Neut % (Auto) 86.7 H (50.0-70.0) % Lymph % (Auto) 5.8 L (20.0-40.0) % [place] % (Auto) 1.8 L (2.0-8.0) % Eos % (Auto) 0.1 L (1.0-3.0) % Baso % (Auto) 0.1 (0.0-1.0) % Neut # (Auto) 8.41 H (2.50-7.00) 10^3/uL Lymph # (Auto) 0.56 L (1.00-4.00) 10^3/uL [place] # (Auto) 0.17 (0.10-0.80) 10^3/uL Eos # (Auto) 0.01 L (0.10-0.30) 10^3/uL Baso # (Auto) 0.01 (0.00-0.10) 10^3/uL Immature Gran # (Auto) 0.53 H (0.00-0.50) 10^3/uL Sodium 134 L (136-145) mmol/L Potassium 3.8 (3.5-5.1) mmol/L Chloride 99 (98-107) mmol/L Carbon Dioxide 19.5 L (21.0-32.0) mmol/L Anion Gap 19.3 H (5-15) mmol/L BUN 18 (7-18) mg/dL Creatinine 0.96 (0.51-1.17) mg/dL Est Cr Clr Drug Dosing 41.71 Estimated GFR (MDRD) 56 mL/min Glucose 125 (70-140) mg/dL Lactic Acid 4.3 H (0.4-2.0) mmol/L Calcium 8.3 L (8.7-10.3) mg/dL Total Bilirubin 0.4 (0.2-1.0) mg/dL Direct Bilirubin (0.0-0.2) mg/dL Indirect Bilirubin mg/dL AST 31 (15-37) U/L ALT 40 (14-63) U/L Alkaline Phosphatase 98 (46-116) U/L C-Reactive Protein 28.3 H (0.0-0.9) mg/dL B-Natriuretic Peptide (0-100) pg/mL Total Protein 6.3 L (6.4-8.2) g/dL Albumin 2.73 L (3.40-5.00) g/dL Globulin Albumin/Globulin Ratio Specimen Type Urine Color (YELLOW) Urine Appearance (CLEAR) Urine pH (5.0-9.0) Ur Specific [place] (1.005-1.030) Urine Protein (NEGATIVE) mg/dL Urine Glucose (UA) (NEGATIVE) mg/dL Urine Ketones (NEGATIVE) mg/dL Urine Occult Blood (NEGATIVE) Urine Nitrite (NEGATIVE) Urine Bilirubin (NEGATIVE) Urine Urobilinogen (0.2-1.0) E.U./dL Ur Leukocyte Esterase (NEGATIVE) Urine RBC (0-5) /HPF Urine WBC (0-5) /HPF Ur Epithelial Cells /LPF Urine Bacteria (NONE TO FEW) /HPF Urine Mucus (NEGATIVE) /LPF SARS CoV-2 RNA Rapid VERA (NEGATIVE) 07/28/20 07/28/20 Range/Units 07:10 07:10 WBC (5.00-10.00) 10^3/uL RBC (3.80-5.50) 10^6/uL Hgb (12.0-16.0) g/dL Hct (37.0-47.0) % MCV (82.0-92.0) fL MCH (27.0-31.0) pg MCHC (32.0-36.0) g/dL RDW (11.5-14.5) % Plt Count (150-400) 10^3/uL MPV (7.4-10.4) fL Immature Gran % (Auto) (0.0-5.0) % Neut % (Auto) (50.0-70.0) % Lymph % (Auto) (20.0-40.0) % [place] % (Auto) (2.0-8.0) % Eos % (Auto) (1.0-3.0) % Baso % (Auto) (0.0-1.0) % Neut # (Auto) (2.50-7.00) 10^3/uL Lymph # (Auto) (1.00-4.00) 10^3/uL [place] # (Auto) (0.10-0.80) 10^3/uL Eos # (Auto) (0.10-0.30) 10^3/uL Baso # (Auto) (0.00-0.10) 10^3/uL Immature Gran # (Auto) (0.00-0.50) 10^3/uL Sodium (136-145) mmol/L Potassium (3.5-5.1) mmol/L Chloride (98-107) mmol/L Carbon Dioxide (21.0-32.0) mmol/L Anion Gap (5-15) mmol/L BUN (7-18) mg/dL Creatinine (0.51-1.17) mg/dL Est Cr Clr Drug Dosing Estimated GFR (MDRD) mL/min Glucose (70-140) mg/dL Lactic Acid 4.7 H (0.4-2.0) mmol/L Calcium (8.7-10.3) mg/dL Total Bilirubin (0.2-1.0) mg/dL Direct Bilirubin (0.0-0.2) mg/dL Indirect Bilirubin mg/dL AST (15-37) U/L ALT (14-63) U/L Alkaline Phosphatase (46-116) U/L C-Reactive Protein (0.0-0.9) mg/dL B-Natriuretic Peptide 170 H (0-100) pg/mL Total Protein (6.4-8.2) g/dL Albumin (3.40-5.00) g/dL Globulin Albumin/Globulin Ratio Specimen Type Urine Color (YELLOW) Urine Appearance (CLEAR) Urine pH (5.0-9.0) Ur Specific [place] (1.005-1.030) Urine Protein (NEGATIVE) mg/dL Urine Glucose (UA) (NEGATIVE) mg/dL Urine Ketones (NEGATIVE) mg/dL Urine Occult Blood (NEGATIVE) Urine Nitrite (NEGATIVE) Urine Bilirubin (NEGATIVE) Urine Urobilinogen (0.2-1.0) E.U./dL Ur Leukocyte Esterase (NEGATIVE) Urine RBC (0-5) /HPF Urine WBC (0-5) /HPF Ur Epithelial Cells /LPF Urine Bacteria (NONE TO FEW) /HPF Urine Mucus (NEGATIVE) /LPF SARS CoV-2 RNA Rapid VERA (NEGATIVE) Result Diagrams: 07/28/20 07:10 07/28/20 07:10 Gideon Results Last 24 hrs: Microbiology 07/27/20 22:55 Anaerobic Blood Culture - Final Blood - Venous 07/27/20 22:45 Urine Culture - Final Urine, Catheterized Sepsis Event Note - Evaluation Sepsis Screening Result: No Definite Risk - Focused Exam Vital Signs: Vital Signs Temp Pulse Resp BP Pulse Ox 07/28/20 10:14 97 F 98 24 H 111/66 93 L 07/28/20 06:40 97.7 F 91 24 H 134/58 L 91 L 07/28/20 03:00 98.2 F 85 24 H 131/66 94 L 07/27/20 23:05 96.8 F L 85 24 H 112/61 92 L - My Orders Last 24 Hours: My Active Orders 07/28/20 00:07 Telemetry Monitoring [Cardiac Monitoring] [RC] 0300,0700,1100,1500,1900,2300 07/28/20 00:11 Ondansetron [Zofran] 4 mg IVPUSH Q6H PRN 07/28/20 00:15 Bladder Scan [RC] .PRN 07/28/20 02:07 Atropine [Atropine 0.1 MG/ML] See Dose Instructions IVPUSH ASDIRECTED PRN EPINEPHrine [EPINEPHrine 1:10,000] 1 mg IVPUSH ASDIRECTED PRN Lidocaine 2% [Xylocaine 2%] See Dose Instructions IVPUSH ASDIRECTED PRN Nitroglycerin [Nitrostat] 0.4 mg SL ASDIRECTED PRN 07/28/20 04:05 Urinary Catheter Assessment [RC] 0900,2100 07/28/20 04:15 [place] Catheter Insertion [Insert Urinary Catheter] [OM.PC] Q24H 07/28/20 06:00 Intake and Output Strict [RC] 0600,1400,2200 07/28/20 07:30 Levothyroxine 25 mcg PO ACBREAKFAST 07/28/20 Breakfast ADA Diabetic [[employer] Diet] [DIET] 07/28/20 09:00 Communication Order [RC] BID
--- NOTE | 2020-08-17 22:28 | PCM.HP.2 ---
H&P History of Present Illness - General Date of Service: 07/28/20 Admit Problem/Dx: Admission Diagnosis/Problem Admission Diagnosis/Problem UTI (urinary tract infection), uncomplicated - Related Data Allergies/Adverse Reactions: Allergies Allergy/AdvReac Type Severity Reaction Status Date / Time rosuvastatin [From Crestor] Allergy Itching Verified 08/11/20 21:53 Mksmyrt-Wau-Sxp Reductase Allergy Other Verified 08/11/20 21:53 Inhibitor Home Medications: Home Meds Latanoprost [Xalatan 0.005% Ophth Soln] 1 drop EYEBOTH BEDTIME 07/22/15 [History] Levothyroxine 25 mcg PO ACBREAKFAST 07/22/15 [History] hydroCHLOROthiazide [Hydrochlorothiazide] 12.5 mg PO DAILY 07/22/15 [History] Losartan [Cozaar] 50 mg PO DAILY 12/24/16 [History] Amitriptyline [Elavil] 50 mg PO BEDTIME 07/28/20 [History] Aspirin [Halfprin] 81 mg PO DAILY 07/28/20 [History] Hydrocortisone [Scalpicin] 1 applic TP DAILY PRN 07/28/20 [History] Triamcinolone Acetonide [Triamcinolone Acetonide 0.1% Crm] 1 applic TOP BID 07/28/20 [History] metFORMIN [Glucophage] 500 mg PO BIDMEALS 07/28/20 [History] Tamsulosin [Flomax] 0.4 mg PO DAILY 08/01/20 [History] diphenhydrAMINE [Benadryl] 25 mg PO BEDTIME PRN 08/01/20 [History] Past Medical History HEENT History: Reports: Cataract, Glaucoma, Hard of Hearing, Impaired Vision Cardiovascular History: Reports: High Cholesterol, Hypertension Respiratory History: Reports: Sleep Apnea Gastrointestinal History: Reports: Chronic Diarrhea, Diverticulosis, Fatty Liver, GERD 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: Fibroids, Musculoskeletal History: Reports: Neck Pain, Chronic Neurological History: Reports: Migraines Psychiatric History: Reports: None, Other (See Below) Other Psychiatric History: Insomnia Endocrine/Metabolic History: Reports: Diabetes, Type II, Hypothyroidism, Obesity/BMI 30+ - Infectious Disease History Infectious Disease History: Reports: Chicken Pox, Herpes, Influenza, Pertussis (Whooping Cough), Shingles - Past Surgical History HEENT Surgical History: Reports: Cataract Surgery Cardiovascular Surgical History: Reports: None Respiratory Surgical History: Reports: None GI Surgical History: Reports: Appendectomy, Colonoscopy, EGD Female Surgical History: Reports: Hysterectomy, Salpingo-Oophorectomy Endocrine Surgical History: Reports: None Neurological Surgical History: Reports: None Social & Family History - Family History Family Medical History: No Pertinent Family History Cardiac: Reports: Hypertension - Tobacco Use Tobacco Use Status *Q: Former Tobacco User Used Tobacco, but Quit: Yes Month/Year Tobacco Last Used: 04/20/1963 - Recreational Drug Use Recreational Drug Use: No H&P Review of Systems - Review of Systems: Review Of Systems: See Below General: Reports: Fever, Chills, Malaise, Weakness, Fatigue HEENT: Reports: No Symptoms Pulmonary: Reports: Shortness of Breath ("when rolling over to get water"). Denies: Wheezing, Cough, Sputum Cardiovascular: Reports: No Symptoms. Denies: Orthopnea, PND Gastrointestinal: Reports: Diarrhea, Nausea. Denies: Constipation, Vomiting Genitourinary: Reports: Retention, Other (indwelling catheter). Denies: Flank Pain Musculoskeletal: Reports: Back Pain Skin: Reports: No Symptoms Psychiatric: Reports: No Symptoms Neurological: Reports: No Symptoms Exam - Exam Exam: See Below - Vital Signs Vital Signs: Last Vital Signs Temp 97 F 07/28/20 10:14 Pulse 98 07/28/20 10:14 Resp 24 H 07/28/20 10:14 BP 111/66 07/28/20 10:14 Pulse Ox 93 L 07/28/20 10:14 Weight: 192 lb 3 oz - Exam Quality Assessment: Urinary Catheter General: Alert, Mild Distress Neck: Supple. No: JVD Lungs: Normal Respiratory Effort, Other (mild coarse crackles to bilateral lower lobes) Cardiovascular: Regular Rate, Regular Rhythm, Systolic Murmur GI/Abdominal Exam: Normal Bowel Sounds, Soft, Non-Tender (Female) Exam: Deferred Rectal (Female) Exam: Deferred Extremities: Normal Inspection, No Pedal Edema Skin: Warm, Moist Psychiatric: Alert - Patient Data Result Diagrams: 07/28/20 07:10 07/28/20 07:10 Sepsis Event Note - Evaluation Sepsis Screening Result: No Definite Risk - Problem List (1) Sepsis due to urinary tract infection SNOMED Code(s): 434961463 ICD Code: A41.9 - SEPSIS, UNSPECIFIED ORGANISM; N39.0 - URINARY TRACT IN FECTION, SITE NOT SPECIFIED Status: Acute (2) Complicated UTI (urinary tract infection) SNOMED Code(s): 16035828 ICD Code: N39.0 - URINARY TRACT INFECTION, SITE NOT SPECIFIED Status: Acute (3) Urinary retention SNOMED Code(s): 549688459 ICD Code: R33.9 - RETENTION OF URINE, UNSPECIFIED Status: Acute Problem List Initiated/Reviewed/Updated: Yes Assessment/Plan Comment:: This is a 79 year female with a history of urinary retention, type 2 DM, glaucoma, hypothyroidism, hypertension, insomnia who was admitted to the [facility] 07/27/2020. Patient presented to the ER with a reported 2 day history of nausea, vomiting, and diarrhea. She states her symptoms worsened the day of presentation and she noted new onset urinary retention. she denied any urinary symptoms of urgency, frequency, burning, or hematuria preceding the onset. She denied fever but had noted chills. ER work-up: - CBC- WBC 25522 - UA:moderate blood, large leukocytes, 20-30RBC, 75-100 WBC, Moderate bacteria, urine culture: pending -Chest x-ray report showed some questionable chronic changes but nothing definitively acute. - Renal function near baseline creatinine 0.85, BUN 16 Additional labs not completed but recommended prior to admission: - Blood cultures: pending - Lactic Acid: 4.9. In the ER patient received IVF, a dose of IV Rocephin 2 g, IV vancomycin, and tylenol for a documented temp of 101.8. Hospitalization course: She was admitted overnight and patient received IV fluid resuscitation and serial lactic acids which initially down trended to 4.3 then increased to 4.7 this AM. Patient had several attempt to go urinate w/o success, had 1 void in the ER of 200mL with 301mL PVR. on the floor void of 100ml-bladder scanned again with a residual of 264ml. Due to urinary retention and accurate I&O indwelling catheter was placed. On rounds this morning patient feeling more short of breath. BNP done and 170. Lactic acid trended up. Given infection severity, worsening clinical status, and patient/family preference consult [facility] and spoke with Dr. Melton with plans to transfer patient to higher level of care with Dr. Melton accepting care. Hospitalization Problems: # Severe sepsis, urosepsis # complicated cystitis # urinary retention # hyponatremia, mild Chronic conditions: # type 2 DM- hold metformin. I'm not sure if her lactic acidosis is related to that. Sliding scale insulin for now, adjust as needed. # Esential hypertension: Hold losartan and HCTZ. # Hypothyroidism: Continue levothyroxine # Insomnia: Continue amitriptyline # Obesity # Sleep Apnea # Fatty liver, nonalcoholic - Mortality Measure Prognosis:: Good
== END 2020-07-28 11:10 | DRG 872 ==
LOC: KA.ED 19:56 → KA.MS 22:48 → UNDOADMIN 23:05 → KA.MS 23:05 → UNDODISIN 07-28 11:10
PROVIDERS: ADMIT Physician Assistant; ATTEND Nurse Practitioner Family
DX: A41.9 Sepsis, unspecified organism (principal); N30.01 Acute cystitis with hematuria; H54.7 Unspecified visual loss; H91.90 Unspecified hearing loss, unspecified ear; N39.0 Urinary tract infection, site not specified; E86.0 Dehydration; Z88.8 Allergy status to other drugs, medicaments and biological substances; Z79.890 Hormone replacement therapy; Z79.899 Other long term (current) drug therapy; E78.00 Pure hypercholesterolemia, unspecified; K52.9 Noninfective gastroenteritis and colitis, unspecified; I10 Essential (primary) hypertension; G47.30 Sleep apnea, unspecified; K21.9 Gastro-esophageal reflux disease without esophagitis; E66.9 Obesity, unspecified; G89.29 Other chronic pain; M54.2 Cervicalgia; E03.9 Hypothyroidism, unspecified; Z98.49 Cataract extraction status, unspecified eye; Z90.49 Acquired absence of other specified parts of digestive tract; Z90.710 Acquired absence of both cervix and uterus; Z20.822 Contact with and (suspected) exposure to COVID-19
CPT/HCPCS: 36415; 51702; 51798; 71046; 80053; 80076; 81001; 83605; 83880; 85025; 86140; 87040; 87086; 87088; 87186; 96374; 99223; 99285-25; A9270-GY; J0696; J2405; J3370; J7030; J7050; U0002

== ENCOUNTER 2020-08-01 13:38 | Inpatient (IN) | payer MEDICARE, BC ==
[2020-08-01] MEDS ORDERED: HYDROCORTISONE TP PRN (16:06)
[2020-08-01] MEDS ORDERED: Triamcinolone Acetonide 0.1% Crm 15 GM Tube TOP PRN (16:06)
[2020-08-01] MEDS ORDERED: diphenhydrAMINE 25 MG Cap PO PRN (16:06)
[2020-08-01] MEDS ORDERED: Menthol 7.6 MG Sugar Free Lozenge PO PRN (17:34)
[2020-08-01] MEDS: metFORMIN 500 MG Tab PO SCH (18:07)
[2020-08-01] MEDS ORDERED: Magnesium Hydroxide 400 MG/5 ML Susp 30 ML Cup PO ONE (18:42)
[2020-08-01] MEDS: Amitriptyline 25 MG Tab PO SCH (20:12)
[2020-08-01] MEDS: Latanoprost 0.005% Ophth Soln 2.5 ML Bottle EYEBOTH SCH (20:12)
[2020-08-01] MEDS ORDERED: Acetaminophen 325 MG Tab PO PRN (22:45)
[2020-08-02] MEDS: Tamsulosin 0.4 MG Cap.ER PO SCH (08:09)
[2020-08-02] MEDS: metFORMIN 500 MG Tab PO SCH ×2 (08:09→18:42)
[2020-08-02] MEDS: Aspirin 81 MG Tab.EC PO SCH (08:09)
[2020-08-02] MEDS: Hydrochlorothiazide 12.5 MG Cap PO SCH (08:09)
[2020-08-02] MEDS: Levothyroxine 25 MCG Tab PO SCH (08:09)
[2020-08-02] MEDS: Levofloxacin 500 MG Tab PO SCH (08:10)
[2020-08-02] MEDS: Losartan 50 MG Tab PO SCH (08:10)
--- NOTE | 2020-08-02 09:49 | PCM.HP.2 ---
H&P History of Present Illness - General Date of Service: 08/02/20 Admit Problem/Dx: Admission Diagnosis/Problem Admission Diagnosis/Problem Urinary tract infection Source of Information: Patient History Limitations: Reports: No Limitations - Related Data Allergies/Adverse Reactions: Allergies Allergy/AdvReac Type Severity Reaction Status Date / Time rosuvastatin [From Crestor] Allergy Itching Verified 07/27/20 21:39 [id number] Reductase Allergy Other Verified 07/27/20 21:39 Inhibitor Home Medications: Home Meds Latanoprost [Xalatan 0.005% Ophth Soln] 1 drop EYEBOTH BEDTIME 07/22/15 [History] Levothyroxine 25 mcg PO ACBREAKFAST 07/22/15 [History] hydroCHLOROthiazide [Hydrochlorothiazide] 12.5 mg PO DAILY 07/22/15 [History] Losartan [Cozaar] 50 mg PO DAILY 12/24/16 [History] Amitriptyline [Elavil] 50 mg PO BEDTIME 07/28/20 [History] Aspirin [Halfprin] 81 mg PO DAILY 07/28/20 [History] Hydrocortisone [Scalpicin] 1 applic TP DAILY PRN 07/28/20 [History] Triamcinolone Acetonide [Triamcinolone Acetonide 0.1% Crm] 1 applic TOP BID 07/28/20 [History] metFORMIN [Glucophage] 500 mg PO BIDMEALS 07/28/20 [History] Levofloxacin 750 mg PO DAILY 08/01/20 [History] Tamsulosin [Tamsulosin 24 Hr] 0.4 mg PO DAILY 08/01/20 [History] diphenhydrAMINE [Benadryl] 25 mg PO BEDTIME PRN 08/01/20 [History] Past Medical History HEENT History: Reports: Cataract, Glaucoma, Hard of Hearing, Impaired Vision Cardiovascular History: Reports: High Cholesterol, Hypertension Respiratory History: Reports: Sleep Apnea Gastrointestinal History: Reports: Chronic Diarrhea, Diverticulosis, Fatty Liver, G[employer] History: Reports: Fibroids, Musculoskeletal History: Reports: Neck Pain, Chronic Neurological History: Reports: Migraines Psychiatric History: Reports: None, Other (See Below) Other Psychiatric History: Insomnia Endocrine/Metabolic History: Reports: Diabetes, Type II, Hypothyroidism, Obesity/BMI 30+ - Infectious Disease History Infectious Disease History: Reports: Chicken Pox, Herpes, Influenza, Pertussis ( Whooping Cough), Shingles - Past Surgical History HEENT Surgical History: Reports: Cataract Surgery Cardiovascular Surgical History: Reports: None Respiratory Surgical History: Reports: None GI Surgical History: Reports: Appendectomy, Colonoscopy, EGD Female Surgical History: Reports: Hysterectomy, Salpingo-Oophorectomy Endocrine Surgical History: Reports: None Neurological Surgical History: Reports: None Social & Family History - Family History Family Medical History: No Pertinent Family History - Tobacco Use Tobacco Use Status *Q: Never Tobacco User - Caffeine Use Caffeine Use: Reports: Coffee - Recreational Drug Use Recreational Drug Use: No H&P Review of Systems - Review of Systems: Review Of Systems: See Below General: Reports: Weakness, Fatigue. Denies: Decreased Appetite, Weight Loss HEENT: Reports: No Symptoms Pulmonary: Reports: Shortness of Breath Cardiovascular: Reports: Dyspnea on Exertion. Denies: Edema Gastrointestinal: Reports: Constipation Genitourinary: Reports: Retention Musculoskeletal: Reports: No Symptoms Skin: Reports: No Symptoms Psychiatric: Denies: Confusion Neurological: Reports: Weakness. Denies: Confusion, Difficulty Walking, Gait Disturbance Hematologic/Lymphatic: Reports: Anemia Immunologic: Reports: No Symptoms Exam - Exam Exam: See Below - Vital Signs Vital Signs: Last Vital Signs Temp 97.5 F 08/02/20 06:31 Pulse 73 08/02/20 06:31 Resp 20 08/02/20 06:31 BP 143/67 H 08/02/20 08:10 Pulse Ox 96 08/02/20 06:31 Weight: 199 lb - Exam Quality Assessment: Supplemental Oxygen. No: DVT Prophylaxis General: Alert, Oriented, Cooperative. No: Mild Distress Lungs: Clear to Auscultation, Normal Respiratory Effort Cardiovascular: Regular Rate, Regular Rhythm GI/Abdominal Exam: Normal Bowel Sounds, Soft, Non-Tender (Female) Exam: Deferred Back Exam: No: CVA Tenderness (L), CVA Tenderness (R) Extremities: No Pedal Edema Peripheral Pulses: 2+: Radial (L), Radial (R) Skin: Warm, Dry, Intact Neurological: Cranial Nerves Intact, Reflexes Equal Bilateral Neuro Extensive - Mental Status: Alert, Oriented x3, Normal Mood/Affect, Normal Cognition, Memory Intact Neuro Extensive - Motor, Sensory, Reflexes: CN II-XII Intact, Normal Gait, Normal Reflexes Psychiatric: Alert, Normal Affect, Normal Mood. No: Anxious - Patient Data Lab Results Last 24 hrs: Laboratory Results - last 24 hr 08/01/20 08/02/20 Range/Units 17:59 07:58 POC Glucose 123 108 (70-140) mg/dL Sepsis Event Note - Evaluation Sepsis Screening Result: No Definite Risk - Focused Exam Vital Signs: Vital Signs Temp Pulse Resp BP BP Pulse Ox 08/02/20 08:10 143/67 H 08/02/20 06:31 97.5 F 73 20 153/81 H 96 Problem List Initiated/Reviewed/Updated: Yes Orders Last 24hrs: Active Orders 24 hr Category Date Time Status Patient Status [ADT] Routine ADT 08/01/20 16:05 Active Communication Order [RC] DAILY Care 08/01/20 15:59 Active Intake and Output [RC] 1400,2200,0600 Care 08/01/20 16:05 Active Oxygen Therapy [RC] PRN Care 08/01/20 16:05 Active Up With Assistance [RC] ASDIRECTED Care 08/01/20 16:05 Active VTE/DVT Education [RC] We@09 Care 08/01/20 16:05 Active Vital Signs [RC] 07,19 Care 08/01/20 16:05 Active PT Evaluation and Treatment [CONS] Routine Cons 08/01/20 16:05 Active [employer] Diet [DIET] Diet 08/01/20 Dinner Active Acetaminophen [TylenoL] Med 08/01/20 22:45 Active 650 mg PO Q4H PRN Amitriptyline [Elavil] Med 08/01/20 21:00 Active 50 mg PO BEDTIME Aspirin [Halfprin] Med 08/02/20 09:00 Active 81 mg PO DAILY Hydrocortisone [Scalpicin] Med 08/01/20 16:06 Pending 1 applic TP DAILY PRN Latanoprost [Xalatan 0.005% Ophth Soln] Med 08/01/20 21:00 Active 0 ml EYEBOTH BEDTIME Levothyroxine Med 08/02/20 07:30 Active 25 mcg PO ACBREAKFAST Losartan [Cozaar] Med 08/02/20 09:00 Active 50 mg PO DAILY Menthol [[place] Sugar Free] Med 08/01/20 17:34 Active 1 davey PO ASDIRECTED PRN Tamsulosin [Flomax] Med 08/02/20 09:00 Active 0.4 mg PO DAILY Triamcinolone Acetonide [Triamcinolone Acetonide 0.1% Med 08/01/20 16:06 Active Crm] 0 gm TOP BID PRN diphenhydrAMINE [Benadryl] Med 08/01/20 16:06 Active 25 mg PO BEDTIME PRN hydroCHLOROthiazide Med 08/02/20 09:00 Active 12.5 mg PO DAILY levoFLOXacin [Levaquin] Med 08/02/20 09:00 Active 750 mg PO DAILY metFORMIN [Glucophage] Med 08/01/20 18:00 Active 500 mg PO BIDMEALS Resuscitation Status Routine Resus Stat 08/01/20 16:05 Ordered Medication Orders Acetaminophen (Acetaminophen 325 Mg Tab) 650 mg PO Q4H PRN PRN Reason: Pain Last Admin: 08/01/20 22:55 Dose: 650 mg Documented by: ERICA Amitriptyline HCl (Amitriptyline 25 Mg Tab) 50 mg PO BEDTIME [facility] Last Admin: 08/01/20 20:12 Dose: 50 mg Documented by: BALWINDER Aspirin (Aspirin 81 Mg Tab.Ec) 81 mg PO DAILY [facility] Last Admin: 08/02/20 08:09 Dose: 81 mg Documented by: BETH Diphenhydramine HCl (Diphenhydramine 25 Mg Cap) 25 mg PO BEDTIME PRN PRN Reason: Sleep Hydrochlorothiazide (Hydrochlorothiazide 12.5 Mg Cap) 12.5 mg PO DAILY [facility] Last Admin: 08/02/20 08:09 Dose: 12.5 mg Documented by: BETH Latanoprost (Latanoprost 0.005% Ophth Soln 2.5 Ml Bottle) 0 ml EYEBOTH BEDTIME [facility] Last Admin: 08/01/20 20:12 Dose: 1 drop Documented by: BALWINDER Levofloxacin (Levofloxacin 500 Mg Tab) 750 mg PO DAILY [facility] Last Admin: 08/02/20 08:10 Dose: 750 mg Documented by: BETH Levothyroxine Sodium (Levothyroxine 25 Mcg Tab) 25 mcg PO ACBREAKFAST [facility] Last Admin: 08/02/20 08:09 Dose: 25 mcg Documented by: BETH Losartan Potassium (Losartan 50 Mg Tab) 50 mg PO DAILY [facility] Last Admin: 08/02/20 08:10 Dose: 50 mg Documented by: BETH Menthol (Menthol 7.6 Mg Sugar Free Lozenge) 1 davey PO ASDIRECTED PRN PRN Reason: dry mouth Metformin HCl (Metformin 500 Mg Tab) 500 mg PO BIDMEALS [facility] Last Admin: 08/02/20 08:09 Dose: 500 mg Documented by: Admin: 08/01/20 18:07 Dose: 500 mg Documented by: BETH Non-Formulary Medication (Hydrocortisone [Scalpicin]) 1 applic TP DAILY PRN PRN Reason: Itching Tamsulosin HCl (Tamsulosin 0.4 Mg Cap.Er) 0.4 mg PO DAILY [facility] Last Admin: 08/02/20 08:09 Dose: 0.4 mg Documented by: BETH Triamcinolone Acetonide (Triamcinolone Acetonide 0.1% Crm 15 Gm Tube) 0 gm TOP BID PRN PRN Reason: Rash Assessment/Plan Comment:: History of present illness Ms Muller 79-year-old female that was transferred into fpc facility here at [facility] from [facility] for physical therapy/rehabilitation due to significant weakness/rehabilitation from recent sepsis complicated to urinary tract infection. Acute care hospital course In [facility] patient had fever, leukocytosis, lactic acidosis, elevated pro- calcitonin and was started on IV cefepime. Blood culture and urine culture grew E. coli and was switched to oral Levaquin. Sepsis pathology resolved and was given IV fluid resuscitation with features of volume overload requiring supplemental oxygen which improved with IV diuresis. A Albarado catheter was placed due to urinary retention, she was started on Flomax. Resolved problems Sepsis Metabolic acidosis Secondary to infection Hypophosphatemia, Replaced Primary fpc problems --Debilitation/deconditioning/weakness --Constipation, MOM --Urinary retention, Flomax was started, indwelling Albarado for now --Anemia, Normocytic Chronic/stable problems HTN, Hydrochlorothiazide, losartan T2DM, Continue sliding scale insulin. Metformin Hypothyroidism, Continue levothyroxine Thrombocytopenia, Stable Mild hyponatremia, Improving Obesity, BMI 34% Sleep apnea Glaucoma: Continue home eyedrops. Insomnia, Continue amitriptyline SAMUEL Disposition/overall plan --Will admit patient into fpc facility here at [facility] for physical therapy outpatient follow-up with urology for urinary retention --PT consult --Code status; FULL DVT prophylaxis, Ambulation - Mortality Measure Prognosis:: Good
[2020-08-02] MEDS ORDERED: Magnesium Hydroxide 400 MG/5 ML Susp 30 ML Cup PO ONE (20:20)
[2020-08-02] MEDS: Amitriptyline 25 MG Tab PO SCH (20:53)
[2020-08-02] MEDS: Latanoprost 0.005% Ophth Soln 2.5 ML Bottle EYEBOTH SCH (20:54)
[2020-08-03] MEDS: Levothyroxine 25 MCG Tab PO SCH (07:49)
[2020-08-03] MEDS: Aspirin 81 MG Tab.EC PO SCH (08:58)
[2020-08-03] MEDS: Hydrochlorothiazide 12.5 MG Cap PO SCH (08:58)
[2020-08-03] MEDS: metFORMIN 500 MG Tab PO SCH ×2 (08:58→18:23)
[2020-08-03] MEDS: Losartan 50 MG Tab PO SCH (08:58)
[2020-08-03] MEDS: Tamsulosin 0.4 MG Cap.ER PO SCH (08:58)
[2020-08-03] MEDS: Levofloxacin 500 MG Tab PO SCH (08:59)
[2020-08-03] MEDS ORDERED: Bisacodyl 10 MG Supp RECTAL ONE (12:10)
--- NOTE | 2020-08-03 12:17 | PCM.SN.2 ---
- Free Text/Narrative Note: Received communication from [facility] that catheter is to remain in place until urology follow-up on 08/13/20.
[2020-08-03] MEDS: Amitriptyline 25 MG Tab PO SCH (20:13)
[2020-08-03] MEDS: Latanoprost 0.005% Ophth Soln 2.5 ML Bottle EYEBOTH SCH (20:14)
[2020-08-04] MEDS: Levothyroxine 25 MCG Tab PO SCH (06:32)
[2020-08-04] MEDS: metFORMIN 500 MG Tab PO SCH ×2 (09:17→18:17)
[2020-08-04] MEDS: Tamsulosin 0.4 MG Cap.ER PO SCH (09:17)
[2020-08-04] MEDS: Hydrochlorothiazide 12.5 MG Cap PO SCH (09:18)
[2020-08-04] MEDS: Levofloxacin 500 MG Tab PO SCH (09:18)
[2020-08-04] MEDS: Aspirin 81 MG Tab.EC PO SCH (09:18)
[2020-08-04] MEDS: Losartan 50 MG Tab PO SCH (09:18)
[2020-08-04] MEDS: Amitriptyline 25 MG Tab PO SCH (20:36)
[2020-08-04] MEDS: Latanoprost 0.005% Ophth Soln 2.5 ML Bottle EYEBOTH SCH (20:37)
[2020-08-05] MEDS: Levothyroxine 25 MCG Tab PO SCH (06:29)
[2020-08-05] MEDS: metFORMIN 500 MG Tab PO SCH ×2 (08:34→18:09)
[2020-08-05] MEDS: Levofloxacin 500 MG Tab PO SCH (08:35)
[2020-08-05] MEDS: Losartan 50 MG Tab PO SCH (08:35)
[2020-08-05] MEDS: Hydrochlorothiazide 12.5 MG Cap PO SCH (08:35)
[2020-08-05] MEDS: Tamsulosin 0.4 MG Cap.ER PO SCH (08:35)
[2020-08-05] MEDS: Aspirin 81 MG Tab.EC PO SCH (08:35)
[2020-08-05] MEDS: Amitriptyline 25 MG Tab PO SCH (20:15)
[2020-08-05] MEDS: Latanoprost 0.005% Ophth Soln 2.5 ML Bottle EYEBOTH SCH (20:16)
[2020-08-06] MEDS: Levothyroxine 25 MCG Tab PO SCH ×2 (06:25→06:33)
[2020-08-06] MEDS: metFORMIN 500 MG Tab PO SCH ×2 (08:10→18:11)
[2020-08-06] MEDS: Losartan 50 MG Tab PO SCH (09:00)
[2020-08-06] MEDS: Aspirin 81 MG Tab.EC PO SCH (09:00)
[2020-08-06] MEDS: Tamsulosin 0.4 MG Cap.ER PO SCH (09:01)
[2020-08-06] MEDS: Levofloxacin 500 MG Tab PO SCH (09:02)
[2020-08-06] MEDS: Hydrochlorothiazide 12.5 MG Cap PO SCH (09:02)
[2020-08-06] MEDS: Amitriptyline 25 MG Tab PO SCH (20:57)
[2020-08-06] MEDS: Latanoprost 0.005% Ophth Soln 2.5 ML Bottle EYEBOTH SCH (20:58)
[2020-08-07] MEDS: Levothyroxine 25 MCG Tab PO SCH (07:43)
[2020-08-07] MEDS: Levofloxacin 500 MG Tab PO SCH (08:50)
[2020-08-07] MEDS: Hydrochlorothiazide 12.5 MG Cap PO SCH (08:50)
[2020-08-07] MEDS: Losartan 50 MG Tab PO SCH (08:50)
[2020-08-07] MEDS: Tamsulosin 0.4 MG Cap.ER PO SCH (08:50)
[2020-08-07 08:51] VITALS: BP 128/57
[2020-08-07] MEDS: metFORMIN 500 MG Tab PO SCH (08:51)
[2020-08-07] MEDS: Aspirin 81 MG Tab.EC PO SCH (08:51)
[2020-08-07 08:56] VITALS: PULSE 80
--- NOTE | 2020-08-07 09:48 | PCM.DCSUM1 ---
Discharge Summary - Hospital Course Diagnosis: Stroke: No - Discharge Data Discharge Date: 08/07/20 Discharge Disposition: Home, W Home Health Agency 06 Condition: Good - Referral to Home Health Date of Face to Face Encounter: 08/07/20 Reason for Homebound Status: She will be homebound due to her indwelling Kumar catheter and decreased endurance and strength. Primary Care Physician: Gracia Lo PA-C Skilled Need: Order and a [id number] encounter for home health services to include the need for physical therapy. Was recently diagnosed with sepsis with an indwelling Kumar catheter which weakened her bilateral lower extremities due to the extent of the infection. Please develop an in-home therapy program to address her lower extremity weakness and fatigue with simple exercises and walking. Patient continue walking with home health nursing to improve activity tolerance is a low fall risk she would benefit from continued therapy to improve her activity tolerance and her strength. Please provide nursing care for indwelling Kumar catheter as high risk for reinfection regarding Kumar catheter. She will be homebound due to her indwelling Kumar catheter and decreased endurance and strength. - Patient Summary/Data Consults: Consultations 08/01/20 16:05 PT Evaluation and Treatment [CONS] Routine - Patient Instructions Diet: Diabetic Diet Activity: As Tolerated Driving: Do Not Drive Showering/Bathing: May Shower Notify Provider of: Fever, Nausea and/or Vomiting - Discharge Plan *PRESCRIPTION DRUG MONITORING PROGRAM REVIEWED*: Not Applicable *COPY OF PRESCRIPTION DRUG MONITORING REPORT IN PATIENT JONATHON: Not Applicable Prescriptions/Med Rec: Levofloxacin 750 mg PO DAILY 4 Days #4 tab Home Medications: Home Meds Latanoprost [Xalatan 0.005% Ophth Soln] 1 drop EYEBOTH BEDTIME 07/22/15 [Hist ory] Levothyroxine 25 mcg PO ACBREAKFAST 07/22/15 [History] hydroCHLOROthiazide [Hydrochlorothiazide] 12.5 mg PO DAILY 07/22/15 [History] Losartan [Cozaar] 50 mg PO DAILY 12/24/16 [History] Amitriptyline [Elavil] 50 mg PO BEDTIME 07/28/20 [History] Aspirin [Halfprin] 81 mg PO DAILY 07/28/20 [History] Hydrocortisone [Scalpicin] 1 applic TP DAILY PRN 07/28/20 [History] Triamcinolone Acetonide [Triamcinolone Acetonide 0.1% Crm] 1 applic TOP BID 07/28/20 [History] metFORMIN [Glucophage] 500 mg PO BIDMEALS 07/28/20 [History] Tamsulosin [Flomax] 0.4 mg PO DAILY 08/01/20 [History] diphenhydrAMINE [Benadryl] 25 mg PO BEDTIME PRN 08/01/20 [History] Levofloxacin 750 mg PO DAILY 4 Days #4 tab 08/07/20 [Rx] - Discharge Summary/Plan Comment DC Time >30 min.: Yes Discharge Summary/Plan Comment: Final diagnosis --Debilitation/deconditioning/weakness --Urinary retention, --Anemia, Normocytic Chronic/stable problems HTN, Hydrochlorothiazide, losartan T2DM, Continue sliding scale insulin. Metformin Hypothyroidism, Continue levothyroxine Thrombocytopenia, Stable Mild hyponatremia, Improving Obesity, BMI 34% Sleep apnea Glaucoma: Continue home eyedrops. Insomnia, Continue amitriptyline BAKER Resolved problems Sepsis Metabolic acidosis Secondary to infection Hypophosphatemia, History summary Ms Muller 79-year-old female that was transferred into pen[facility]entiary facility here at [facility] from [facility] for physical therapy/rehabilitation due to significant weakness/rehabilitation from recent sepsis complicated to urinary tract infection. Acute care hospital course In [facility] patient had fever, leukocytosis, lactic acidosis, elevated pro- calcitonin and was started on IV cefepime. Blood culture and urine culture grew E. coli and was switched to oral Levaquin. Sepsis pathology resolved and was given IV fluid resuscitation with features of volume overload requiring supplemental oxygen which improved with IV diuresis. A Kumar catheter was placed due to urinary retention, she was started on Flomax. Skilled care course; she did well throughout her penitentiary care. She continued to have indwelling Kumar catheter without any infection sequela. She continued on Levaquin and did well. She ambulated with physical therapy with [facility] although she did have some increased shortness of breath early on she was on room air upon discharge. Significant fatigue with the basic simple exercises and walking however she gained her strength over the course of a few days and was nearing her baseline upon discharge. She never sustained a fall, no side effects to treatments and/or medications. She never had a fever. Discharge she felt like she had adequate lower extremity strength in order to proceed to discharge however she will receive home health therapy. She will have a urological follow-up appointment next week. Medication changes/adjustments upon discharge And 750 mg p.o. daily x4 more days, dose 08/08 Disposition --Patient will be discharged from penitentiary here at [facility] and placed in a home health therapy --Urological appointment next week [facility] --Tinea with indwelling Kumar catheter until she sees urology This is an order and a [id number] encounter for home health services to include the need for physical therapy. Was recently diagnosed with sepsis with an indwelling Kumar catheter which weakened her bilateral lower extremities due to the extent of the infection. Please develop an in-home therapy program to address her lower extremity weakness and fatigue with simple exercises and walking. Patient continue walking with home health nursing to improve activity tolerance is a low fall risk she would benefit from continued therapy to improve her activity tolerance and her strength. Please provide nursing care for indwelling Kumar catheter as high risk for reinfection regarding Kumar catheter. She will be homebound due to her indwelling Kumar catheter and decreased endurance and strength. - General Info Date of Service: 08/07/20 Functional Status: Reports: Pain Controlled - Review of Systems HEENT: Reports: No Symptoms Pulmonary: Reports: No Symptoms Cardiovascular: Reports: No Symptoms Gastrointestinal: Reports: No Symptoms Musculoskeletal: Reports: Other Skin: Reports: No Symptoms Neurological: Reports: No Symptoms Psychiatric: Reports: No Symptoms - Patient Data Vitals - Most Recent: Last Vital Signs Temp 96.8 F L 08/07/20 08:55 Pulse 80 08/07/20 08:55 Resp 17 08/07/20 08:55 BP 128/57 L 08/07/20 08:55 Pulse Ox 94 L 08/07/20 08:55 Weight - Most Recent: 199 lb I&O - Last 24 hours: Intake & Output 08/06/20 08/07/20 08/07/20 22:59 06:59 14:59 Intake Total 175 50 Output Total 675 900 Balance -500 -850 Med Orders - Current: Current Medications Acetaminophen (Acetaminophen 325 Mg Tab) 650 mg PO Q4H PRN PRN Reason: Pain Last Admin: 08/01/20 22:55 Dose: 650 mg Documented by: Amitriptyline HCl (Amitriptyline 25 Mg Tab) 50 mg PO BEDTIME ADDIE Last Admin: 08/06/20 20:57 Dose: 50 mg Documented by: Aspirin (Aspirin 81 Mg Tab.Ec) 81 mg PO DAILY [facility] Last Admin: 08/07/20 08:51 Dose: 81 mg Documented by: Diphenhydramine HCl (Diphenhydramine 25 Mg Cap) 25 mg PO BEDTIME PRN PRN Reason: Sleep Hydrochlorothiazide (Hydrochlorothiazide 12.5 Mg Cap) 12.5 mg PO DAILY [facility] Last Admin: 08/07/20 08:50 Dose: 12.5 mg Documented by: Latanoprost (Latanoprost 0.005% Ophth Soln 2.5 Ml Bottle) 0 ml EYEBOTH BEDTIME [facility] Last Admin: 08/06/20 20:58 Dose: 1 drop Documented by: Levofloxacin (Levofloxacin 500 Mg Tab) 750 mg PO DAILY [facility] Last Admin: 08/07/20 08:50 Dose: 750 mg Documented by: Levothyroxine Sodium (Levothyroxine 25 Mcg Tab) 25 mcg PO ACBREAKFAST [facility] Last Admin: 08/07/20 07:43 Dose: 25 mcg Documented by: Losartan Potassium (Losartan 50 Mg Tab) 50 mg PO DAILY [facility] Last Admin: 08/07/20 08:50 Dose: 50 mg Documented by: Menthol (Menthol 7.6 Mg Sugar Free Lozenge) 1 davey PO ASDIRECTED PRN PRN Reason: dry mouth Metformin HCl (Metformin 500 Mg Tab) 500 mg PO BIDMEALS [facility] Last Admin: 08/07/20 08:51 Dose: 500 mg Documented by: Senna/Docusate Sodium (Docusate Sodium/Sennosides 50-8.6 Mg Tab) 1 tab PO BID [facility] Last Admin: 08/07/20 08:51 Dose: 1 tab Documented by: Tamsulosin HCl (Tamsulosin 0.4 Mg Cap.Er) 0.4 mg PO DAILY [facility] Last Admin: 08/07/20 08:50 Dose: 0.4 mg Documented by: Triamcinolone Acetonide (Triamcinolone Acetonide 0.1% Crm 15 Gm Tube) 0 gm TOP BID PRN PRN Reason: Rash Discontinued Medications Bisacodyl (Bisacodyl 10 Mg Supp) 10 mg RECTAL ONETIME ONE Stop: 08/03/20 12:11 Last Admin: 08/03/20 12:51 Dose: 10 mg Documented by: Magnesium Hydroxide (Magnesium Hydroxide 400 Mg/5 Ml Susp 30 Ml Cup) 30 ml PO ONETIME ONE Stop: 08/01/20 18:43 Last Admin: 08/01/20 18:54 Dose: 30 ml Documented by: Magnesium Hydroxide (Magnesium Hydroxide 400 Mg/5 Ml Susp 30 Ml Cup) 30 ml PO ONETIME ONE Stop: 08/02/20 20:21 Last Admin: 08/02/20 20:53 Dose: 30 ml Documented by: - Exam Quality Assessment: Denies: Supplemental Oxygen General: Reports: Alert, Oriented Neck: Reports: Supple Lungs: Reports: Clear to Auscultation, Normal Respiratory Effort Cardiovascular: Reports: Murmurs GI/Abdominal Exam: No Distention (Female) Exam: Deferred, Other (kumar) Back Exam: Denies: CVA Tenderness (L), CVA Tenderness (R) Skin: Reports: Warm, Dry, Intact Psy/Mental Status: Reports: Alert, Normal Affect, Normal Mood
== END 2020-08-07 14:00 | disposition home health service (06) | DRG 948 ==
LOC: KA.MS 15:50
PROVIDERS: ADMIT Family Medicine; ATTEND Family Medicine
DX: R53.1 Weakness (principal); E87.1 Hypo-osmolality and hyponatremia; R53.81 Other malaise; R33.9 Retention of urine, unspecified; D64.9 Anemia, unspecified; I10 Essential (primary) hypertension; E11.9 Type 2 diabetes mellitus without complications; Z79.4 Long term (current) use of insulin; E03.9 Hypothyroidism, unspecified; Z79.890 Hormone replacement therapy; E66.9 Obesity, unspecified; Z68.34 Body mass index [BMI] 34.0-34.9, adult; G47.30 Sleep apnea, unspecified; H40.9 Unspecified glaucoma; G47.00 Insomnia, unspecified; K75.81 Nonalcoholic steatohepatitis (NASH); Z96.0 Presence of urogenital implants; Z88.8 Allergy status to other drugs, medicaments and biological substances; Z79.82 Long term (current) use of aspirin; Z79.899 Other long term (current) drug therapy; H54.7 Unspecified visual loss; E78.00 Pure hypercholesterolemia, unspecified; K52.9 Noninfective gastroenteritis and colitis, unspecified; K76.0 Fatty (change of) liver, not elsewhere classified; K57.90 Diverticulosis of intestine, part unspecified, without perforation or abscess without bleeding; G43.909 Migraine, unspecified, not intractable, without status migrainosus; G89.29 Other chronic pain; M54.2 Cervicalgia; Z98.49 Cataract extraction status, unspecified eye; Z90.710 Acquired absence of both cervix and uterus; Z90.49 Acquired absence of other specified parts of digestive tract; D69.6 Thrombocytopenia, unspecified
CPT/HCPCS: 82947; 97110-GP; 97161-GP; A9270-GY

== ENCOUNTER 2020-08-11 21:51 | Emergency (ER) | payer MEDICARE, BC ==
--- NOTE | 2020-08-11 22:42 | EDM.PDOC ---
ED HPI GENERAL MEDICAL PROBLEM - General Chief Complaint: General Stated Complaint: disorientation/ assisted fall Time Seen by Provider: 08/11/20 22:19 Source of Information: Reports: Patient, Family (daughter) History Limitations: Reports: No Limitations - History of Present Illness INITIAL COMMENTS - FREE TEXT/NARRATIVE: Patient presents with weakness tonight. She was about to get into bed and felt weak; then slowly slid to the floor. Her daughter was helping her and laid her down flat on the floor. She then vomited. She says she has been up and walking some each day without feeling faint or lightheaded and this was unusual. She has been treating a UTI/pyelonephritis for about 2.5 weeks and just finished her Levaquin today. She had been in [facility] for a few days then swingbed here until 4 days ago. Her daughter says she was told there was a little fluid on the lungs while in [facility] but no history of CHF. Patient denies any ankle swelling currently or in past. No fever recently but did have low grade while inpatient at [facility]. History of frequent UTI. She currently has a Albarado catheter that has been in for 2+ weeks but not previously. She drinks about 7 cups of water daily and her daughter says she empties the urine bag 3 times a day and it is usually over half full. - Related Data Allergies Allergy/AdvReac Type Severity Reaction Status Date / Time rosuvastatin [From Crestor] Allergy Itching Verified 08/11/20 21:53 Verrcen-[id number] Reductase Allergy Other Verified 08/11/20 21:53 Inhibitor Home Meds: Home Meds Latanoprost [Xalatan 0.005% Ophth Soln] 1 drop EYEBOTH BEDTIME 07/22/15 [History] Levothyroxine 25 mcg PO ACBREAKFAST 07/22/15 [History] hydroCHLOROthiazide [Hydrochlorothiazide] 12.5 mg PO DAILY 07/22/15 [History] Losartan [Cozaar] 50 mg PO DAILY 12/24/16 [History] Amitriptyline [Elavil] 50 mg PO BEDTIME 07/28/20 [History] Aspirin [Halfprin] 81 mg PO DAILY 07/28/20 [History] Hydrocortisone [Scalpicin] 1 applic TP DAILY PRN 07/28/20 [History] Triamcinolone Acetonide [Triamcinolone Acetonide 0.1% Crm] 1 applic TOP BID 07/28/20 [History] metFORMIN [Glucophage] 500 mg PO BIDMEALS 07/28/20 [History] Tamsulosin [Flomax] 0.4 mg PO DAILY 08/01/20 [History] diphenhydrAMINE [Benadryl] 25 mg PO BEDTIME PRN 08/01/20 [History] Past Medical History HEENT History: Reports: Cataract, Glaucoma, Hard of Hearing, Impaired Vision Cardiovascular History: Reports: High Cholesterol, Hypertension Respiratory History: Reports: Sleep Apnea Gastrointestinal History: Reports: Chronic Diarrhea, Diverticulosis, Fatty Liver, GERD VIDEO SPECIALIST History: Reports: Fibroids, Musculoskeletal History: Reports: Neck Pain, Chronic Neurological History: Reports: Migraines Psychiatric History: Reports: None, Other (See Below) Other Psychiatric History: Insomnia Endocrine/Metabolic History: Reports: Diabetes, Type II, Hypothyroidism, Obesity/BMI 30+ - Infectious Disease History Infectious Disease History: Reports: Chicken Pox, Herpes, Influenza, Pertussis (Whooping Cough), Shingles - Past Surgical History HEENT Surgical History: Reports: Cataract Surgery Cardiovascular Surgical History: Reports: None Respiratory Surgical History: Reports: None GI Surgical History: Reports: Appendectomy, Colonoscopy, EGD Female Surgical History: Reports: Hysterectomy, Salpingo-Oophorectomy Endocrine Surgical History: Reports: None Neurological Surgical History: Reports: None Social & Family History - Family History Family Medical History: No Pertinent Family History - Caffeine Use Caffeine Use: Reports: Coffee ED ROS GENERAL - Review of Systems Review Of Systems: See Below Constitutional: Reports: Weakness, Fatigue. Denies: Fever, Chills, Malaise HEENT: Denies: Ear Pain, Throat Pain, Vision Change Respiratory: Denies: Shortness of Breath, Cough Cardiovascular: Denies: Chest Pain, Lightheadedness, Syncope Endocrine: Reports: Fatigue GI/Abdominal: Reports: Vomiting (once). Denies: Abdominal Pain, Nausea : Denies: Dysuria, Flank Pain Musculoskeletal: Denies: Neck Pain, Shoulder Pain, Arm Pain, Back Pain Skin: Denies: Cyanosis, Jaundice, Mottled, Pallor, Diaphoresis Neurological: Denies: Confusion, Dizziness, Headache, Seizure, Syncope, Trouble Speaking, Difficulty Walking Psychiatric: Denies: Agitation, Anxiety, Confusion ED EXAM, GENERAL - Physical Exam Exam: See Below Exam Limited By: No Limitations General Appearance: Alert, WD/WN, No Apparent Distress Eye Exam: Bilateral Eye: EOMI, Normal Inspection, PERRL Ears: Normal External Exam, Hearing Loss (chronic) Nose: Normal Inspection, No Blood Throat/Mouth: Normal Inspection, Normal Lips, Normal Voice, No Airway Compromise Head: Atraumatic, Normocephalic Neck: Normal Inspection, Full Range of Motion Respiratory/Chest: No Respiratory Distress, No Accessory Muscle Use, Crackles (extreme lung bases L>R) Cardiovascular: Normal Peripheral Pulses, Regular Rate, Rhythm, No Edema, No Gallop, No JVD Peripheral Pulses: 2+: Radial (L), Radial (R), Posterior Tibial (L), Posterior Tibial (R) GI/Abdominal: Normal Bowel Sounds, Soft, Non-Tender, No Organomegaly, No Distention, No Abnormal Bruit Back Exam: Normal Inspection, Full Range of Motion. No: CVA Tenderness (L), CVA Tenderness (R) Extremities: Normal Inspection, Normal Range of Motion, No Pedal Edema Neurological: Alert, Oriented, Normal Cognition, No Motor/Sensory Deficits Psychiatric: Normal Affect, Normal Mood Skin Exam: Warm, Dry, Intact, Normal Color, No Rash Course - Vital Signs Last Recorded V/S: Last Vital Signs Temp 96.5 F L 08/11/20 22:07 Pulse 76 08/11/20 23:10 Resp 20 08/11/20 23:10 BP 122/65 08/11/20 23:10 Pulse Ox 94 L 08/11/20 23:10 - Orders/Labs/Meds Orders: Active Orders 24 hr Category Date Time Status CXR [Chest 2V] [CR] Stat Exams 08/11/20 22:32 Ordered CULTURE URINE [RM] Stat Lab 08/11/20 23:17 Ordered Labs: Laboratory Tests 08/11/20 08/11/20 08/11/20 Range/Units 22:03 22:18 22:18 WBC 8.78 (5.00-10.00) 10^3/uL RBC 4.21 (3.80-5.50) 10^6/uL Hgb 11.2 L (12.0-16.0) g/dL Hct 34.3 L (37.0-47.0) % MCV 81.5 L (82.0-92.0) fL MCH 26.6 L (27.0-31.0) pg MCHC 32.7 (32.0-36.0) g/dL RDW 15.7 H (11.5-14.5) % Plt Count 347 D (150-400) 10^3/uL MPV 9.1 (7.4-10.4) fL Immature Gran % (Auto) 0.2 (0.0-5.0) % Neut % (Auto) 69.0 (50.0-70.0) % Lymph % (Auto) 18.8 L (20.0-40.0) % [place] % (Auto) 9.2 H (2.0-8.0) % Eos % (Auto) 2.1 (1.0-3.0) % Baso % (Auto) 0.7 (0.0-1.0) % Neut # (Auto) 6.06 (2.50-7.00) 10^3/uL Lymph # (Auto) 1.65 (1.00-4.00) 10^3/uL [place] # (Auto) 0.81 H (0.10-0.80) 10^3/uL Eos # (Auto) 0.18 (0.10-0.30) 10^3/uL Baso # (Auto) 0.06 (0.00-0.10) 10^3/uL Immature Gran # (Auto) 0.02 (0.00-0.50) 10^3/uL Sodium 136 (136-145) mmol/L Potassium 3.8 (3.5-5.1) mmol/L Chloride 99 (98-107) mmol/L Carbon Dioxide 18.9 L (21.0-32.0) mmol/L Anion Gap 21.9 H (5-15) mmol/L BUN 31 H (7-18) mg/dL Creatinine 1.19 H (0.51-1.17) mg/dL Est Cr Clr Drug Dosing 33.64 mL/min Estimated GFR (MDRD) 44 mL/min Glucose 120 (70-140) mg/dL Calcium 9.6 (8.7-10.3) mg/dL B-Natriuretic Peptide (0-100) pg/mL Specimen Type Urinfol Urine Color Yellow (YELLOW) Urine Appearance Slightly cloudy H (CLEAR) Urine pH 5.5 (5.0-9.0) Ur Specific [place] 1.020 (1.005-1.030) Urine Protein 30 H (NEGATIVE) mg/dL Urine Glucose (UA) Negative (NEGATIVE) mg/dL Urine Ketones Negative (NEGATIVE) mg/dL Urine Occult Blood Moderate H (NEGATIVE) Urine Nitrite Negative (NEGATIVE) Urine Bilirubin Negative (NEGATIVE) Urine Urobilinogen 0.2 (0.2-1.0) E.U./dL Ur Leukocyte Esterase Small H (NEGATIVE) Urine RBC 5-10 H (0-5) /HPF Urine WBC >100 H (0-5) /HPF Ur Epithelial Cells Moderate H /LPF Urine Bacteria Few (NONE TO FEW) /HPF Urine Yeast Few H (NEGATIVE) /HPF 08/11/20 Range/Units 22:18 WBC (5.00-10.00) 10^3/uL RBC (3.80-5.50) 10^6/uL Hgb (12.0-16.0) g/dL Hct (37.0-47.0) % MCV (82.0-92.0) fL MCH (27.0-31.0) pg MCHC (32.0-36.0) g/dL RDW (11.5-14.5) % Plt Count (150-400) 10^3/uL MPV (7.4-10.4) fL Immature Gran % (Auto) (0.0-5.0) % Neut % (Auto) (50.0-70.0) % Lymph % (Auto) (20.0-40.0) % [place] % (Auto) (2.0-8.0) % Eos % (Auto) (1.0-3.0) % Baso % (Auto) (0.0-1.0) % Neut # (Auto) (2.50-7.00) 10^3/uL Lymph # (Auto) (1.00-4.00) 10^3/uL [place] # (Auto) (0.10-0.80) 10^3/uL Eos # (Auto) (0.10-0.30) 10^3/uL Baso # (Auto) (0.00-0.10) 10^3/uL Immature Gran # (Auto) (0.00-0.50) 10^3/uL Sodium (136-145) mmol/L Potassium (3.5-5.1) mmol/L Chloride (98-107) mmol/L Carbon Dioxide (21.0-32.0) mmol/L Anion Gap (5-15) mmol/L BUN (7-18) mg/dL Creatinine (0.51-1.17) mg/dL Est Cr Clr Drug Dosing mL/min Estimated GFR (MDRD) mL/min Glucose (70-140) mg/dL Calcium (8.7-10.3) mg/dL B-Natriuretic Peptide 22 (0-100) pg/mL Specimen Type Urine Color (YELLOW) Urine Appearance (CLEAR) Urine pH (5.0-9.0) Ur Specific [place] (1.005-1.030) Urine Protein (NEGATIVE) mg/dL Urine Glucose (UA) (NEGATIVE) mg/dL Urine Ketones (NEGATIVE) mg/dL Urine Occult Blood (NEGATIVE) Urine Nitrite (NEGATIVE) Urine Bilirubin (NEGATIVE) Urine Urobilinogen (0.2-1.0) E.U./dL Ur Leukocyte Esterase (NEGATIVE) Urine RBC (0-5) /HPF Urine WBC (0-5) /HPF Ur Epithelial Cells /LPF Urine Bacteria (NONE TO FEW) /HPF Urine Yeast (NEGATIVE) /HPF - Re-Assessments/Exams Free Text/Narrative Re-Assessment/Exam: 08/11/20 23:31 CBC good. UA shows >100 WBC, moderate epithelials (squamous per Namer). This is a little worse than on 07/27 but leukocyte esterase and bacteria levels are improved. Culture pending. I discussed findings with patient, and daughter. She is feeling very well now and wants to go home. She walked in the [place] for us without difficulty or unsteadiness. She has an appointment for follow up with urology on Thursday and we printed copies of lab reports from [facility] to take with her to urologist. Discharged to home in stable condition. Departure - Departure Time of Disposition: 23:27 Disposition: Home, Self-Care 01 Condition: Good Clinical Impression: General weakness - Discharge Information Referrals: Gracia Lo PA-C [Primary Care Provider] - Forms: ED Department Discharge Additional Instructions: Drink 8 cups of water each day. Use your walker for support to avoid falling. Take [facility] lab reports with you to the urologist on Thursday. Return to ER if needed for worsening. Sepsis Event Note (ED) - Evaluation Sepsis Screening Result: No Definite Risk - Focused Exam Vital Signs: Vital Signs Temp Pulse Resp BP Pulse Ox 08/11/20 23:10 76 20 122/65 94 L 08/11/20 22:32 78 20 97/57 L 93 L 08/11/20 22:07 96.5 F L 81 20 124/65 95 - My Orders Last 24 Hours: My Active Orders 08/11/20 22:32 CXR [Chest 2V] [CR] Stat 08/11/20 23:17 CULTURE URINE [RM] Stat - Assessment/Plan Last 24 Hours: My Active Orders 08/11/20 22:32 CXR [Chest 2V] [CR] Stat 08/11/20 23:17 CULTURE URINE [RM] Stat
[2020-08-11 22:45] LABS: ANION GAP 21.9 mmol/L (5-15)
[2020-08-11 23:10] VITALS: BP 122/65; PULSE 76
--- NOTE | 2020-08-12 08:47 | CR ---
[id number] RAD/RAD Chest PA And Lateral EXAM: FRONTAL AND LATERAL CHEST INDICATION: CRACKLES IN BASES. COMPARISON: July 27, 2020. DISCUSSION: Body habitus limits the frontal view. There is stable mild cardiomegaly with borderline central vascular congestion. Possible mild left base infiltrates. Tortuous thoracic aorta. IMPRESSION: 1. Cardiomegaly with borderline central vascular congestion. 2. Mild left base atelectasis and/or infiltrates. Follow-up with standing PA and lateral views may be useful. Nicholas Sullivan MD 08/12/20 0845 Thank you for allowing us to participate in the care of your patient.
== END 2020-08-11 23:45 | disposition home or self-care (01) ==
LOC: KA.ED 21:51
DX: R53.1 Weakness (principal); E78.00 Pure hypercholesterolemia, unspecified; I10 Essential (primary) hypertension; E11.9 Type 2 diabetes mellitus without complications; E03.9 Hypothyroidism, unspecified; E66.9 Obesity, unspecified; Z68.29 Body mass index [BMI] 29.0-29.9, adult; Z88.8 Allergy status to other drugs, medicaments and biological substances; Z79.82 Long term (current) use of aspirin; Z79.84 Long term (current) use of oral hypoglycemic drugs
CPT/HCPCS: 36415; 71046; 80048; 81001; 82947; 83880; 85025; 87086; 87088; 99284; 99285-25

== ENCOUNTER 2022-11-26 12:33 | Emergency (ER) | payer MEDICARE, BC ==
[2022-11-26] MEDS: Ondansetron 4 MG Tab.DIS PO ONE (12:52)
[2022-11-26] MEDS: Ondansetron 4 MG Tab.DIS ONE (13:04)
[2022-11-26] MEDS ORDERED: Sodium Chloride 0.9% 10 ML Syringe FLUSH PRN (13:06)
[2022-11-26] MEDS: Sodium Chloride 0.9% 1,000 ML IV SCH (13:13)
[2022-11-26 13:18] LABS: BASOPHILS ABSOLUTE AUTO 0.03 10^3/uL (0.00-0.10); BASOPHILS PERCENT AUTO 0.6 % (0.0-1.0); EOSINOPHILS ABSOLUTE AUTO 0.19 10^3/uL (0.10-0.30); EOSINOPHILS PERCENT AUTO 3.5 % (1.0-3.0); HEMATOCRIT 38.3 % (37.0-47.0); HEMOGLOBIN 12.5 g/dL (12.0-16.0); IMMATURE GRAN ABSOLUTE AUTO 0.01 10^3/uL (0.00-0.50); IMMATURE GRAN PERCENT AUTO 0.2 % (0.0-5.0); LYMPHOCYTES ABSOLUTE AUTO 0.97 10^3/uL (1.00-4.00); LYMPHOCYTES PERCENT AUTO 17.8 % (20.0-40.0); MEAN CORPUSCULAR HGB CONC 32.6 g/dL (32.0-36.0); MEAN CORPUSCULAR VOLUME 82.7 fL (82.0-92.0); MONOCYTES ABSOLUTE AUTO 0.37 10^3/uL (0.10-0.80); MONOCYTES PERCENT AUTO 6.8 % (2.0-8.0); NEUTROPHILS ABSOLUTE AUTO 3.87 10^3/uL (2.50-7.00); NEUTROPHILS PERCENT AUTO 71.1 % (50.0-70.0); PLATELET COUNT,PLT 192 10^3/uL (150-400); RED BLOOD CELL COUNT 4.63 10^6/uL (3.80-5.50); RED CELL DISTRIBUTION WIDTH 13.5 % (11.5-14.5); WHITE BLOOD CELL COUNT,WBC 5.44 10^3/uL (5.00-10.00)
[2022-11-26] MEDS: Sodium Chloride 0.9% 1,000 ML ONE (13:18)
[2022-11-26 13:36] LABS: ALBUMIN 3.82 g/dL (3.40-5.00); ANION GAP 15.1 mmol/L (5-15); BILIRUBIN TOTAL 0.3 mg/dL (0.2-1.0); CALCIUM 9.3 mg/dL (8.7-10.3); CARBON DIOXIDE,CO2 25.2 mmol/L (21.0-32.0); CREATININE 0.69 mg/dL (0.51-1.17); EST CRCL DRUG DOSING (CG) 53.79 mL/min; POTASSIUM,K 4.3 mmol/L (3.5-5.1); PROTEIN TOTAL,TP 7.1 g/dL (6.4-8.2)
[2022-11-26 15:00] LABS: APPEARANCE,URINE SLIGHTLY CLOUDY (CLEAR); BILIRUBIN,URINE NEGATIVE (NEGATIVE); COLOR,URINE LIGHT YELLOW (YELLOW); GLUCOSE,URINE NEGATIVE (NEGATIVE); KETONES,URINE NEGATIVE (NEGATIVE); LEUKOCYTE ESTERASE,URINE MODERATE (NEGATIVE); NITRITE,URINE NEGATIVE (NEGATIVE); OCCULT BLOOD,URINE TRACE-INTACT (NEGATIVE); PH,URINE 7.5 (5.0-9.0); PROTEIN,URINE NEGATIVE (NEGATIVE); UROBILINOGEN,URINE 0.2 E.U./dL (0.2-1.0)
[2022-11-26 15:12] LABS: BACTERIA,URINE MANY /HPF (NONE TO FEW); EPITHELIAL CELLS,URINE FEW /LPF; WBC,URINE 75-100 /HPF (0-5)
[2022-11-26 17:07] VITALS: BP 158/80; PULSE 63
== END 2022-11-26 15:41 | disposition home or self-care (01) ==
LOC: KA.ED 12:33
DX: R42 Dizziness and giddiness (principal); R53.1 Weakness; N30.01 Acute cystitis with hematuria; E86.0 Dehydration; E78.00 Pure hypercholesterolemia, unspecified; I10 Essential (primary) hypertension; K21.9 Gastro-esophageal reflux disease without esophagitis; E11.9 Type 2 diabetes mellitus without complications; E03.9 Hypothyroidism, unspecified; E66.9 Obesity, unspecified; Z88.8 Allergy status to other drugs, medicaments and biological substances; Z79.899 Other long term (current) drug therapy; Z79.84 Long term (current) use of oral hypoglycemic drugs; Z68.32 Body mass index [BMI] 32.0-32.9, adult
CPT/HCPCS: 80053; 81001; 84484; 85025; 87086; 87088; 93005; 93010; 96360; 96361; 99284; 99284-25; A9270-GY; J7030

== ENCOUNTER 2022-11-28 13:31 | Emergency (ER) | payer MEDICARE, BC ==
[2022-11-28 13:51] VITALS: BP 144/65; PULSE 63
[2022-11-28] MEDS ORDERED: Sodium Chloride 0.9% 1,000 ML IV ONE (14:15)
[2022-11-28] MEDS ORDERED: Meclizine 25 MG Tab PO ONE (14:16)
[2022-11-28] MEDS ORDERED: diphenhydrAMINE 50 MG/ML SDV IVPUSH ONE (14:25)
[2022-11-28] MEDS ORDERED: Promethazine 12.5 MG in Sodium Chloride 0.9% 100 ML IV PRN (14:25)
[2022-11-28 14:28] LABS: BASOPHILS ABSOLUTE AUTO 0.05 10^3/uL (0.00-0.10); BASOPHILS PERCENT AUTO 0.9 % (0.0-1.0); EOSINOPHILS ABSOLUTE AUTO 0.25 10^3/uL (0.10-0.30); EOSINOPHILS PERCENT AUTO 4.6 % (1.0-3.0); HEMATOCRIT 36.3 % (37.0-47.0); HEMOGLOBIN 11.5 g/dL (12.0-16.0); LYMPHOCYTES ABSOLUTE AUTO 0.68 10^3/uL (1.00-4.00); LYMPHOCYTES PERCENT AUTO 12.6 % (20.0-40.0); MEAN CORPUSCULAR HEMOGLOBIN 26.7 pg (27.0-31.0); MEAN CORPUSCULAR HGB CONC 31.7 g/dL (32.0-36.0); MEAN CORPUSCULAR VOLUME 84.2 fL (82.0-92.0); MEAN PLATELET VOLUME 8.8 fL (7.4-10.4); MONOCYTES ABSOLUTE AUTO 0.58 10^3/uL (0.10-0.80); MONOCYTES PERCENT AUTO 10.7 % (2.0-8.0); NEUTROPHILS ABSOLUTE AUTO 3.84 10^3/uL (2.50-7.00); NEUTROPHILS PERCENT AUTO 71.2 % (50.0-70.0); PLATELET COUNT,PLT 166 10^3/uL (150-400); RED BLOOD CELL COUNT 4.31 10^6/uL (3.80-5.50); RED CELL DISTRIBUTION WIDTH 13.6 % (11.5-14.5)
[2022-11-28 14:42] LABS: ANION GAP 14.6 mmol/L (5-15); CALCIUM 8.9 mg/dL (8.7-10.3); CARBON DIOXIDE,CO2 27.1 mmol/L (21.0-32.0); CREATININE 0.92 mg/dL (0.51-1.17); EST CRCL DRUG DOSING (CG) 41.23 mL/min; POTASSIUM,K 4.7 mmol/L (3.5-5.1)
[2022-11-28 15:25] LABS: APPEARANCE,URINE CLEAR (CLEAR); BILIRUBIN,URINE NEGATIVE (NEGATIVE); COLOR,URINE DARK YELLOW (YELLOW); GLUCOSE,URINE 100 mg/dL (NEGATIVE); KETONES,URINE NEGATIVE (NEGATIVE); LEUKOCYTE ESTERASE,URINE SMALL (NEGATIVE); NITRITE,URINE POSITIVE (NEGATIVE); OCCULT BLOOD,URINE NEGATIVE (NEGATIVE); PROTEIN,URINE NEGATIVE (NEGATIVE)
[2022-11-28 15:31] LABS: BACTERIA,URINE FEW /HPF (NONE TO FEW); EPITHELIAL CELLS,URINE FEW /LPF; RBC,URINE 0-5 /HPF (0-5); WBC,URINE 20-30 /HPF (0-5)
== END 2022-11-28 16:45 | disposition home or self-care (01) ==
LOC: KA.ED 13:31
DX: E86.0 Dehydration (principal); N39.0 Urinary tract infection, site not specified; E03.9 Hypothyroidism, unspecified; I10 Essential (primary) hypertension; E78.00 Pure hypercholesterolemia, unspecified; K21.9 Gastro-esophageal reflux disease without esophagitis; E11.9 Type 2 diabetes mellitus without complications; E66.9 Obesity, unspecified; Z88.8 Allergy status to other drugs, medicaments and biological substances; Z79.899 Other long term (current) drug therapy; Z68.32 Body mass index [BMI] 32.0-32.9, adult
CPT/HCPCS: 80048; 81001; 85025; 87086; 96361; 96365; 96375; 99284; A9270; J1200; J2550; J3490; J7030

== ENCOUNTER 2022-12-03 16:23 | Observation (INO) | payer MEDICARE, BC ==
[2022-12-03] MEDS ORDERED: Sodium Chloride 0.9% 1,000 ML IV SCH ×3 (17:30→18:42)
[2022-12-03] MEDS ORDERED: Ondansetron 4 MG/2 ML SDV IVPUSH PRN (17:34)
[2022-12-03] MEDS ORDERED: Sodium Chloride 0.9% 1,000 ML ONE (17:42)
[2022-12-03] MEDS ORDERED: TRAZODONE 50 MG PO PRN (17:52)
[2022-12-03] MEDS: Sodium Chloride 0.9% 1,000 ML IV SCH (19:06)
[2022-12-03] MEDS ORDERED: Latanoprost 0.005% Ophth Soln 2.5 ML Bottle EYEBOTH SCH (21:00)
[2022-12-04] MEDS: Sodium Chloride 0.9% 1,000 ML IV SCH (04:59)
[2022-12-04] MEDS ORDERED: LEVOTHYROXINE 25 MCG PO SCH (07:30)
[2022-12-04 07:38] LABS: ANION GAP 14.2 mmol/L (5-15); CARBON DIOXIDE,CO2 24.8 mmol/L (21.0-32.0); CREATININE 0.79 mg/dL (0.51-1.17); EST CRCL DRUG DOSING (CG) 46.98 mL/min
[2022-12-04] MEDS ORDERED: PAROXETINE 20 MG PO SCH (09:00)
[2022-12-04] MEDS ORDERED: Aspirin 81 MG Tab.EC PO SCH (09:00)
[2022-12-04] MEDS ORDERED: metFORMIN 500 MG Tab - PTOM PO SCH (09:00)
[2022-12-04] MEDS ORDERED: Polyethylene Glycol 3350 Powder 17 GM Packet PO ONE (09:14)
[2022-12-04 09:49] LABS: CALCIUM 8.7 mg/dL (8.7-10.3)
[2022-12-04 11:14] VITALS: BP 135/64; PULSE 67
== END 2022-12-04 13:18 | disposition home or self-care (01) ==
LOC: KA.MS 16:35
PROVIDERS: ADMIT Nurse Practitioner Family; ATTEND Family Medicine
DX: I95.1 Orthostatic hypotension (principal); E86.0 Dehydration; E87.1 Hypo-osmolality and hyponatremia; R42 Dizziness and giddiness; R01.1 Cardiac murmur, unspecified; G47.33 Obstructive sleep apnea (adult) (pediatric); G47.00 Insomnia, unspecified; I35.0 Nonrheumatic aortic (valve) stenosis; I10 Essential (primary) hypertension; R33.9 Retention of urine, unspecified; N39.0 Urinary tract infection, site not specified; E11.9 Type 2 diabetes mellitus without complications; E03.9 Hypothyroidism, unspecified; M19.90 Unspecified osteoarthritis, unspecified site; F41.9 Anxiety disorder, unspecified; H40.9 Unspecified glaucoma; L30.9 Dermatitis, unspecified; Z79.84 Long term (current) use of oral hypoglycemic drugs; Z79.890 Hormone replacement therapy; Z79.82 Long term (current) use of aspirin; Z79.899 Other long term (current) drug therapy; Z88.1 Allergy status to other antibiotic agents; Z88.8 Allergy status to other drugs, medicaments and biological substances
CPT/HCPCS: 36415; 80048; A9270; J2405; J7030

== ENCOUNTER 2022-12-17 17:13 | Emergency (ER) | payer MEDICARE, BC ==
[2022-12-17 17:52] LABS: BASOPHILS ABSOLUTE AUTO 0.04 10^3/uL (0.00-0.10); BASOPHILS PERCENT AUTO 0.7 % (0.0-1.0); EOSINOPHILS PERCENT AUTO 3.3 % (1.0-3.0); HEMATOCRIT 39.4 % (37.0-47.0); HEMOGLOBIN 12.9 g/dL (12.0-16.0); IMMATURE GRAN ABSOLUTE AUTO 0.02 10^3/uL (0.00-0.50); IMMATURE GRAN PERCENT AUTO 0.3 % (0.0-5.0); LYMPHOCYTES ABSOLUTE AUTO 0.91 10^3/uL (1.00-4.00); MEAN CORPUSCULAR HEMOGLOBIN 27.7 pg (27.0-31.0); MEAN CORPUSCULAR HGB CONC 32.7 g/dL (32.0-36.0); MEAN CORPUSCULAR VOLUME 84.5 fL (82.0-92.0); MEAN PLATELET VOLUME 8.6 fL (7.4-10.4); MONOCYTES ABSOLUTE AUTO 0.46 10^3/uL (0.10-0.80); MONOCYTES PERCENT AUTO 7.6 % (2.0-8.0); NEUTROPHILS ABSOLUTE AUTO 4.42 10^3/uL (2.50-7.00); NEUTROPHILS PERCENT AUTO 73.1 % (50.0-70.0); PLATELET COUNT,PLT 218 10^3/uL (150-400); RED BLOOD CELL COUNT 4.66 10^6/uL (3.80-5.50); RED CELL DISTRIBUTION WIDTH 13.6 % (11.5-14.5); WHITE BLOOD CELL COUNT,WBC 6.05 10^3/uL (5.00-10.00)
[2022-12-17] MEDS: Ondansetron 4 MG/2 ML SDV ONE (17:53)
[2022-12-17] MEDS: Sodium Chloride 0.9% 1,000 ML ONE (17:53)
[2022-12-17] MEDS: Sodium Chloride 0.9% 1,000 ML IV ONE (17:53)
[2022-12-17] MEDS: Ondansetron 4 MG/2 ML SDV IVPUSH ONE (17:54)
[2022-12-17 18:03] VITALS: BP 127/84
[2022-12-17 18:10] LABS: ALBUMIN 3.84 g/dL (3.40-5.00); ANION GAP 10.9 mmol/L (5-15); BILIRUBIN TOTAL 0.2 mg/dL (0.2-1.0); CALCIUM 9.3 mg/dL (8.7-10.3); CARBON DIOXIDE,CO2 27.1 mmol/L (21.0-32.0); CREATININE 0.63 mg/dL (0.51-1.17); EST CRCL DRUG DOSING (CG) 57.93 mL/min; PROTEIN TOTAL,TP 7.4 g/dL (6.4-8.2)
[2022-12-17 18:38] VITALS: PULSE 59
== END 2022-12-17 18:58 | disposition home or self-care (01) ==
LOC: KA.ED 17:13
DX: R42 Dizziness and giddiness (principal); E78.00 Pure hypercholesterolemia, unspecified; I10 Essential (primary) hypertension; E11.9 Type 2 diabetes mellitus without complications; E03.9 Hypothyroidism, unspecified; E66.9 Obesity, unspecified; Z68.31 Body mass index [BMI] 31.0-31.9, adult; Z88.1 Allergy status to other antibiotic agents; Z88.8 Allergy status to other drugs, medicaments and biological substances; Z79.82 Long term (current) use of aspirin; Z79.899 Other long term (current) drug therapy
CPT/HCPCS: 80053; 82140; 85025; 96361; 96374; 99284; 99284-25; J2405; J7030

== ENCOUNTER 2024-02-01 21:07 | Emergency (ER) | payer MEDICARE, BC ==
[2024-02-01] MEDS: Sodium Chloride 0.9% 10 ML Syringe FLUSH PRN (21:33)
[2024-02-01] MEDS: Ondansetron 4 MG/2 ML SDV IVPUSH ONE (21:39)
[2024-02-01 21:40] LABS: BASOPHILS ABSOLUTE AUTO 0.02 10^3/uL (0.00-0.10); BASOPHILS PERCENT AUTO 0.3 % (0.0-1.0); EOSINOPHILS ABSOLUTE AUTO 0.12 10^3/uL (0.10-0.30); EOSINOPHILS PERCENT AUTO 1.6 % (1.0-3.0); HEMATOCRIT 42.3 % (37.0-47.0); HEMOGLOBIN 14.5 g/dL (12.0-16.0); IMMATURE GRAN ABSOLUTE AUTO 0.01 10^3/uL (0.00-0.50); IMMATURE GRAN PERCENT AUTO 0.1 % (0.0-5.0); LYMPHOCYTES ABSOLUTE AUTO 0.62 10^3/uL (1.00-4.00); LYMPHOCYTES PERCENT AUTO 8.1 % (20.0-40.0); MEAN CORPUSCULAR HGB CONC 34.3 g/dL (32.0-36.0); MEAN CORPUSCULAR VOLUME 84.6 fL (82.0-92.0); MEAN PLATELET VOLUME 8.9 fL (7.4-10.4); MONOCYTES ABSOLUTE AUTO 0.39 10^3/uL (0.10-0.80); MONOCYTES PERCENT AUTO 5.1 % (2.0-8.0); NEUTROPHILS ABSOLUTE AUTO 6.51 10^3/uL (2.50-7.00); NEUTROPHILS PERCENT AUTO 84.8 % (50.0-70.0); PLATELET COUNT,PLT 214 10^3/uL (150-400); RED CELL DISTRIBUTION WIDTH 12.3 % (11.5-14.5); WHITE BLOOD CELL COUNT,WBC 7.67 10^3/uL (5.00-10.00)
[2024-02-01] MEDS: Sodium Chloride 0.9% 1,000 ML IV ONE (21:48)
[2024-02-01 22:09] LABS: ALBUMIN 4.23 g/dL (3.40-5.00); ANION GAP 16.3 mmol/L (5-15); BILIRUBIN TOTAL 0.8 mg/dL (0.2-1.0); CALCIUM 9.3 mg/dL (8.7-10.3); CARBON DIOXIDE,CO2 23.3 mmol/L (21.0-32.0); CREATININE 0.68 mg/dL (0.51-1.17); EST CRCL DRUG DOSING (CG) 52.76 mL/min; POTASSIUM,K 3.6 mmol/L (3.5-5.1); PROTEIN TOTAL,TP 7.6 g/dL (6.4-8.2)
[2024-02-01 22:37] VITALS: BP 145/80; PULSE 73
[2024-02-01] MEDS: Ondansetron 4 MG Tab.DIS PO ONE (22:45)
== END 2024-02-01 23:01 | disposition home or self-care (01) ==
LOC: KA.ED 21:07
DX: A08.4 Viral intestinal infection, unspecified (principal); I10 Essential (primary) hypertension; E11.9 Type 2 diabetes mellitus without complications; E03.9 Hypothyroidism, unspecified; E66.9 Obesity, unspecified; Z68.32 Body mass index [BMI] 32.0-32.9, adult; Z90.710 Acquired absence of both cervix and uterus; Z79.82 Long term (current) use of aspirin; Z79.899 Other long term (current) drug therapy; Z88.8 Allergy status to other drugs, medicaments and biological substances; Z88.9 Allergy status to unspecified drugs, medicaments and biological substances; Z88.2 Allergy status to sulfonamides
CPT/HCPCS: 80053; 83605; 83690; 85025; 96361; 96374; 99284-25; A9270-GY; J2405; J3490; J7030

== ENCOUNTER 2024-07-12 15:23 | Emergency (ER) | payer MEDICARE, BC ==
[2024-07-12 15:39] VITALS: BP 167/82; PULSE 68
[2024-07-12] MEDS: Acetaminophen 500 MG Tab PO ONE (16:13)
== END 2024-07-12 17:08 | disposition home or self-care (01) ==
LOC: KA.ED 15:23
DX: S63.622A Sprain of interphalangeal joint of left thumb, initial encounter (principal); S00.83XA Contusion of other part of head, initial encounter; I10 Essential (primary) hypertension; E78.00 Pure hypercholesterolemia, unspecified; E11.9 Type 2 diabetes mellitus without complications; E03.9 Hypothyroidism, unspecified; Z88.8 Allergy status to other drugs, medicaments and biological substances; Z88.2 Allergy status to sulfonamides; Z79.890 Hormone replacement therapy; Z79.82 Long term (current) use of aspirin; Z79.899 Other long term (current) drug therapy; W10.8XXA Fall (on) (from) other stairs and steps, initial encounter; Y93.89 Activity, other specified
CPT/HCPCS: 70450; 71100-RT; 72125; 73140-FA; 99284; A9270-GY

== ENCOUNTER 2024-10-15 10:50 | Emergency (ER) | payer MEDICARE, BC ==
[2024-10-15 11:06] VITALS: BP 131/89
[2024-10-15 11:22] VITALS: PULSE 62
[2024-10-15 11:23] LABS: BASOPHILS ABSOLUTE AUTO 0.03 10^3/uL (0.00-0.10); BASOPHILS PERCENT AUTO 0.5 % (0.0-1.0); EOSINOPHILS ABSOLUTE AUTO 0.21 10^3/uL (0.10-0.30); EOSINOPHILS PERCENT AUTO 3.4 % (1.0-3.0); HEMATOCRIT 40.1 % (37.0-47.0); HEMOGLOBIN 13.4 g/dL (12.0-16.0); IMMATURE GRAN ABSOLUTE AUTO 0.01 10^3/uL (0.00-0.04); IMMATURE GRAN PERCENT AUTO 0.2 % (0.0-0.4); LYMPHOCYTES ABSOLUTE AUTO 1.25 10^3/uL (1.00-4.00); LYMPHOCYTES PERCENT AUTO 20.4 % (20.0-40.0); MEAN CORPUSCULAR HGB CONC 33.4 g/dL (32.0-36.0); MEAN CORPUSCULAR VOLUME 86.8 fL (82.0-92.0); MEAN PLATELET VOLUME 8.9 fL (7.4-10.4); MONOCYTES ABSOLUTE AUTO 0.53 10^3/uL (0.10-0.80); MONOCYTES PERCENT AUTO 8.6 % (2.0-8.0); NEUTROPHILS ABSOLUTE AUTO 4.11 10^3/uL (2.50-7.00); NEUTROPHILS PERCENT AUTO 66.9 % (50.0-70.0); PLATELET COUNT,PLT 194 10^3/uL (150-400); RED BLOOD CELL COUNT 4.62 10^6/uL (3.80-5.50); RED CELL DISTRIBUTION WIDTH 12.3 % (11.5-14.5); WHITE BLOOD CELL COUNT,WBC 6.14 10^3/uL (5.00-10.00)
[2024-10-15 11:40] LABS: ALBUMIN 3.77 g/dL (3.40-5.00); ANION GAP 14.4 mmol/L (5-15); BILIRUBIN TOTAL 0.6 mg/dL (0.2-1.0); CALCIUM 9.4 mg/dL (8.7-10.3); CARBON DIOXIDE,CO2 27.1 mmol/L (21.0-32.0); CREATININE 0.69 mg/dL (0.51-1.17); EST CRCL DRUG DOSING (CG) 54.28 mL/min; POTASSIUM,K 4.5 mmol/L (3.5-5.1); URIC ACID 5.6 mg/dL (2.6-7.2)
[2024-10-15] MEDS: predniSONE 20 MG Tab PO ONE (12:08)
== END 2024-10-15 12:15 | disposition home or self-care (01) ==
LOC: KA.ED 10:50
DX: M10.9 Gout, unspecified (principal); E78.00 Pure hypercholesterolemia, unspecified; I10 Essential (primary) hypertension; E11.9 Type 2 diabetes mellitus without complications; E03.9 Hypothyroidism, unspecified; Z88.2 Allergy status to sulfonamides; Z88.8 Allergy status to other drugs, medicaments and biological substances; Z79.890 Hormone replacement therapy; Z79.82 Long term (current) use of aspirin; Z79.899 Other long term (current) drug therapy
CPT/HCPCS: 36415; 80053; 83605; 84550; 85025; 99283; 99284; J7512

== ENCOUNTER 2025-03-31 09:27 | Emergency (ER) | payer MEDICARE, BC ==
[2025-03-31] MEDS: Sodium Chloride 0.9% 10 ML Syringe FLUSH PRN (09:37)
[2025-03-31 09:46] LABS: BASOPHILS ABSOLUTE AUTO 0.04 10^3/uL (0.00-0.10); BASOPHILS PERCENT AUTO 0.4 % (0.0-1.0); EOSINOPHILS ABSOLUTE AUTO 0.27 10^3/uL (0.10-0.30); EOSINOPHILS PERCENT AUTO 2.9 % (1.0-3.0); IMMATURE GRAN ABSOLUTE AUTO 0.03 10^3/uL (0.00-0.04); IMMATURE GRAN PERCENT AUTO 0.3 % (0.0-0.4); LYMPHOCYTES ABSOLUTE AUTO 1.34 10^3/uL (1.00-4.00); LYMPHOCYTES PERCENT AUTO 14.1 % (20.0-40.0); MEAN PLATELET VOLUME 8.9 fL (7.4-10.4); MONOCYTES ABSOLUTE AUTO 0.69 10^3/uL (0.10-0.80); MONOCYTES PERCENT AUTO 7.3 % (2.0-8.0); NEUTROPHILS ABSOLUTE AUTO 7.10 10^3/uL (2.50-7.00); NEUTROPHILS PERCENT AUTO 75.0 % (50.0-70.0); PLATELET COUNT,PLT 210 10^3/uL (150-400); RED BLOOD CELL COUNT 4.81 10^6/uL (3.80-5.50); RED CELL DISTRIBUTION WIDTH 12.7 % (11.5-14.5); WHITE BLOOD CELL COUNT,WBC 9.47 10^3/uL (5.00-10.00)
[2025-03-31] MEDS: Ondansetron 4 MG/2 ML SDV IVPUSH ONE (09:58)
[2025-03-31 09:59] LABS: ALANINE AMINOTRANSFERASE,ALT 32 U/L (14-63); ASPARTATE AMNIOTRANSFERASE,AST 21 U/L (15-37); BILIRUBIN TOTAL 0.7 mg/dL (0.2-1.0); BLOOD UREA NITROGEN,BUN 13 mg/dL (7-18); CARBON DIOXIDE,CO2 27.6 mmol/L (21.0-32.0); CHLORIDE,CL 102 mmol/L (98-107); CREATININE 0.64 mg/dL (0.51-1.17); ESTIMATED GFR 88 mL/min (>=60); GLUCOSE RANDOM 131 mg/dL (70-140); POTASSIUM,K 3.8 mmol/L (3.5-5.1); PROTEIN TOTAL,TP 7.8 g/dL (6.4-8.2); SODIUM,NA 138 mmol/L (136-145)
[2025-03-31] MEDS: Labetalol 100 MG/20 ML MDV IVPUSH ONE (10:11)
[2025-03-31 10:56] VITALS: BP 197/116; PULSE 70
[2025-03-31 15:43] LABS: APPEARANCE,URINE CLOUDY (CLEAR)
[2025-03-31 15:44] LABS: GLUCOSE,URINE NEGATIVE (NEGATIVE); OCCULT BLOOD,URINE TRACE-INTACT (NEGATIVE)
[2025-03-31 15:45] LABS: EPITHELIAL CELLS,URINE RARE /LPF
[2025-03-31] MEDS: Nitrofurantoin Monohydrate/Macrocrystalline 100 MG Cap PO ONE (18:00)
== END 2025-03-31 11:19 | disposition home or self-care (01) ==
LOC: KA.ED 09:29
DX: S00.03XA Contusion of scalp, initial encounter (principal); I16.0 Hypertensive urgency; R11.2 Nausea with vomiting, unspecified; R29.6 Repeated falls; I10 Essential (primary) hypertension; E78.00 Pure hypercholesterolemia, unspecified; E11.9 Type 2 diabetes mellitus without complications; E03.9 Hypothyroidism, unspecified; Z88.8 Allergy status to other drugs, medicaments and biological substances; Z79.82 Long term (current) use of aspirin; Z79.890 Hormone replacement therapy; Z79.899 Other long term (current) drug therapy; W01.198A Fall on same level from slipping, tripping and stumbling with subsequent striking against other object, initial encounter; Y93.89 Activity, other specified
CPT/HCPCS: 70450; 71045; 80053; 81001; 84484; 85025; 87086; 87088; 96361; 96374; 96375; 99284-25; A9270-GY; J1920; J2405; J7030

== ENCOUNTER 2025-04-01 18:31 | Emergency (ER) | payer MEDICARE, BC ==
[2025-04-01 19:57] VITALS: BP 179/82; PULSE 64
== END 2025-04-01 19:45 | disposition home or self-care (01) ==
LOC: KA.ED 18:31
DX: I10 Essential (primary) hypertension (principal); E78.00 Pure hypercholesterolemia, unspecified; Z88.8 Allergy status to other drugs, medicaments and biological substances; Z79.82 Long term (current) use of aspirin; Z79.899 Other long term (current) drug therapy; Z79.890 Hormone replacement therapy
CPT/HCPCS: 99283; 99284; A9270-GY